=== PATIENT | female | born 1995 | race African-American/Black ===

== ENCOUNTER → 2016-10-11 | Outpatient (CLI) | payer BC ==
[~2016-10-11] MED LIST: BACT400T PO; CIPR500T2 PO; FERR1TAB36 PO; FERR325T PO; LACT PO; NORC5TAB PO; [UNRECOGNIZED DRUG - CODE] PO
[2016-10-11 12:30] LABS: HEMATOCRIT 28.4 % (35.0-46.0); MEAN CORPUSCULAR HGB CONC 31.8 % (32.0-36.0); PLATELET COUNT 627 TH/MM3 (150-450); RED CELL DISTRIBUTION WIDTH 16.9 % (11.6-17.2); WHITE BLOOD COUNT 10.4 TH/MM3 (4.0-11.0)
[2016-10-11 12:32] LABS: REVIEW FLAG FINAL
[2016-10-11 13:33] LABS: ANION GAP 8 MEQ/L (5-15); BICARBONATE 27.7 MEQ/L (21.0-32.0); CHLORIDE 102 MEQ/L (98-107); POTASSIUM 3.9 MEQ/L (3.5-5.1); SODIUM (NA) 138 MEQ/L (136-145)
[2016-10-11 13:39] LABS: BHCG SCREEN QUALITATIVE LESS THAN 1 MIU/ML (0-5)
--- NOTE | 2016-10-12 13:34 | EKG ---
Date Performed: 10/11/2016 Time Performed: 12:55:59 PTAGE: 21 years EKG: Sinus rhythm WITH SINUS ARRHYTHMIA NONSPECIFIC T-WAVE ABNORMALITY BORDERLINE ECG NO PREVIOUS TRACING DOCTOR: Kelsi Berntsein Interpretating Date/Time 10/12/2016 13:30:15
--- NOTE | 2016-10-12 17:48 | MH ---
cc: GAIL MCCLAIN DATE OF ADMISSION 10/11/2016 DATE OF 1995 CHIEF COMPLAINT Bilateral extensive hidradenitis HISTORY OF PRESENT ILLNESS This is a 21-year-old black female who has had recurrent active draining hidradenitis both axilla and also to some extent both side groins. Currently she is having significant problems under the axilla. She was seen in my office approximately two weeks ago and was started on oral Septra antibiotic. She does have a history of MRSA cultures positive in the past. She is not septic or having any fever, chills or systemic issue. She does have chronic anemia of unknown origin. Her mother and also some female relatives are also anemic, but she says that she is not sickle-cell positive or a carrier. Her other medical history is otherwise negative. She wishes to go ahead with the definitive removal of the hidradenitis baring glands. She has had numerous antibiotic treatments and occasional small surgical drainage but no definitive removal. The patient underwent detailed explanation of the surgery required, the removal of the glands including surrounding normal soft tissue down to the underlying normal fat and removing all the scars in sinus tracts and the resulting defect would be fairly large. Her axillary hidradenitis covers both the upper extremity side and the chest wall and the center and has numerous open areas. The patient is unable to raise her arms more than 90 degrees at this time. The patient was explained the possibility that due to the active purulent drainage and the history of MRSA it may be advisable to leave the area open at least initially and allow it to granulate in and clear the infection. It can be either skin grafted or a rotation flap closure may be attempted. However, the size of the defect might be too large for a rotation defect from the clinical examination. The patient is willing to leave the area open if need be. The other possibility of forming keloid from a skin graft donor site and also at any surgical site in the body were discussed and she is well aware of that possibility as well. She was told that due to her anemia the postoperative period may be somewhat more prolonged and she may feel more tired compared to someone with a normal hemoglobin. Her current hemoglobin level in the range of 9 grams. The patient should be able to undergo the surgery without much blood loss. However, she understands the possibility that there may be postoperative bleeding, infection, there may be need for intervening in case of acute postoperative hemorrhage and that the blood transfusion may be required. The patient is willing to go ahead with the surgery. PAST MEDICAL HISTORY Negative for any diabetes or any other medical problems. PAST SURGICAL HISTORY No major surgeries. The only surgery has been . MEDICATIONS No current medications other than the prescribed antibiotics. The patient does state iron pills off and on, and oral contraceptives. ALLERGIES She is not allergic to any medication. SOCIAL HISTORY Nonsmoker. No alcohol or drug abuse. No HIV or hepatitis risk factors. PHYSICAL EXAMINATION GENERAL: A 29-year-old black female with a stable vital signs. The patient is alert, cooperative, fully oriented, emotionally stable. Vital signs: She is five feet six inches tall, weight 175 pounds. HEENT: Clear sclerae. Intact pupils. Trachea in midline. No thyromegaly noted. Neck movements are normal. EXTREMITIES: The upper and lower extremities are also grossly normal CHEST: Good expansion with normal breathing, normal breath sounds. HEART: Normal heart sounds. ABDOMEN: Slightly protuberant but otherwise normal. BREASTS: The local examination of the right axillae show extensive hidradenitis with purulent discharge. Under the arm in the axillae and on the chest wall side are involved, also the anterior and posterior axillary folds are also getting involved. The groin areas are more quiet at this time, although there are multiple areas of hidradenitis present. LABORATORY DATA The patient's laboratory tests have shown hemoglobin in the range of nine. IMPRESSION Bilateral extensive hidradenitis PLAN Excise all the area and possibly leave it open and consider a delayed skin graft or a secondary closure at the time. signed, not fully reviewed MD HARVEY Stewart/ /5:17 PM /5:30 PM SAMIR
== END ==
LOC: CPRE 11:55
PROVIDERS: ATTEND Plastic Surgery
DX: L73.2 Hidradenitis suppurativa (principal); R94.31 Abnormal electrocardiogram [ECG] [EKG]
CPT/HCPCS: 36415; 80051; 84703; 85027; 93005

== ENCOUNTER 2016-10-13 06:17 | Observation (INO) | payer BC ==
[~2016-10-13] VITALS: Ht 167.6 cm; Wt 75.0 kg
[~2016-10-13 06:17] MED LIST changes: -[UNRECOGNIZED DRUG - CODE] PO
[2016-10-13] MEDS ORDERED: [UNRECOGNIZED DRUG - CODE] PO ×2 (07:10)
[2016-10-13 07:13] VITALS: BP 116/76; PULSE 106; RESP 20; TEMP 99; O2SAT 100
[2016-10-13] MEDS ORDERED: LIDOCAINE 1%/EPINEPHrine 1:100,000 SOLN 30 ML VIAL ONE (07:19)
[2016-10-13] MEDS ORDERED: ceFAZolin INJ 1,000 MG VIAL ONE (07:20)
[2016-10-13] MEDS ORDERED: BUPIVACAINE/EPINEPHRINE 0.25% PF 30 ML VIAL ONE (07:20)
[2016-10-13] MEDS ORDERED: MINERAL OIL 10 ML VIAL ONE (07:20)
[2016-10-13] MEDS ORDERED: SODIUM CHLORIDE 0.9% INJ 100 ML ONE (07:21)
[2016-10-13] MEDS ORDERED: LACTATED RINGER'S 1000 ML INJ 1,000 ML ONE (07:23)
[2016-10-13] MEDS ORDERED: SODIUM CHLORIDE FLUSH PRN IVF (07:30)
[2016-10-13] MEDS ORDERED: ceFAZolin 1,000 MG/NS 100 ML IV SCH ×2 (07:30)
[2016-10-13] MEDS ORDERED: EPINEPHrine HCL (1:1000) 1 MG/ML VIAL ONE (07:31)
[2016-10-13] MEDS ORDERED: LIDOCAINE 0.5%/EPINEPHrine 1:200,000 SOLN 50 ML VIAL ONE (07:31)
[2016-10-13] MEDS ORDERED: ACETAMINOPHEN 1000 MG/100 ML VIAL IV ONE (07:38)
[2016-10-13] MEDS ORDERED: BACITRACIN TOP OINT 15 GM TUBE ONE (07:42)
[2016-10-13] MEDS ORDERED: INSULIN HUMAN REGULAR 1,000 UNITS/10 ML VIAL SQ PRN (07:45)
[2016-10-13] MEDS ORDERED: SODIUM CHLORID 0.9% 500 ML IV SCH (07:45)
[2016-10-13] MEDS: LACTATED RINGER'S 1000 ML IV SCH (07:45)
[2016-10-13] MEDS ORDERED: METOPROLOL TARTRATE 25 MG TAB PO PRN (07:45)
[2016-10-13] MEDS ORDERED: DO NOT ADM ANY ANTICOAGULANT DRUGS XX PRN (09:45)
[2016-10-13] MEDS ORDERED: *MEPERIDINE 25 MG INJ VIAL PERIprocedural Use ONLY ONE (09:51)
[2016-10-13] MEDS ORDERED: *PROMETHAZINE 25 MG/ML VIAL PERIprocedural use ONLY ONE (09:54)
[2016-10-13] MEDS ORDERED: fentaNYL CITRATE 250 MCG/5 ML AMP ONE ×2 (09:58)
[2016-10-13] MEDS ORDERED: MIDAZOLAM HCL 2 MG/2 ML VIAL ONE (09:58)
[2016-10-13] MEDS: HYDROmorphone HCL PF 1 MG/ML VIAL IV PRN ×4 (10:19→20:12)
[2016-10-13] MEDS ORDERED: ONDANSETRON HCL 4 MG/2 ML VIAL IV PUSH ONE (12:00)
[2016-10-13] MEDS ORDERED: PROPOFOL 200 MG/20 ML AMP IV ONE (12:00)
[2016-10-13 20:00] VITALS: BP 102/56; PULSE 75; RESP 18; TEMP 97.6; O2SAT 98
[2016-10-13] MEDS: SODIUM CHLORIDE FLUSH BID IVF SCH (21:00)
[2016-10-13] MEDS: ACETAMINOPHEN/HYDROcodone 325 MG/10 MG TAB PO PRN (22:11)
[2016-10-13 23:42] VITALS: BP 103/56; PULSE 93; RESP 18; TEMP 98.6; O2SAT 98
[2016-10-14 01:16] VITALS: O2SAT 94
[2016-10-14 04:00] VITALS: BP 110/54; PULSE 66; RESP 18; TEMP 98.6; O2SAT 98
[2016-10-14] MEDS: ACETAMINOPHEN/HYDROcodone 325 MG/10 MG TAB PO PRN ×2 (04:17→08:27)
[2016-10-14] MEDS: LACTATED RINGER'S 1000 ML IV SCH (07:39)
[2016-10-14] MEDS: SODIUM CHLORIDE FLUSH BID IVF SCH (07:46)
[2016-10-14 08:00] VITALS: BP 122/99; PULSE 65; RESP 16; TEMP 97.3; O2SAT 99
--- NOTE | 2016-10-14 08:16 | PD.PLAS.PN ---
Subjective Remarks Patient doing very well. No active bleeding at dressings Afebrile Pain minimal Feels normal OK to shower and change dressing Her mother is a wound care nurse - she will help to dress it daily FU 1 week. Vital Signs Date Time Temp Pulse Resp B/P Pulse Ox O2 Delivery O2 Flow Rate FiO2 10/14/16 04:00 98.6 66 18 110/54 98 10/14/16 01:16 94 10/13/16 23:42 98.6 93 18 103/56 98 10/13/16 20:00 97.6 75 18 102/56 98 10/13/16 16:48 18 10/13/16 15:45 97.6 68 16 114/68 97 Room Air 10/13/16 14:00 69 16 113/69 96 Room Air 10/13/16 13:00 72 16 115/65 95 Room Air 10/13/16 12:00 76 16 119/68 98 Nasal Cannula 2 10/13/16 11:42 16 10/13/16 11:00 97.8 75 15 124/71 97 Nasal Cannula 2 10/13/16 10:49 15 10/13/16 10:45 77 15 123/75 97 Nasal Cannula 2 10/13/16 10:30 79 15 127/77 97 Nasal Cannula 2 10/13/16 10:15 88 15 121/81 96 Nasal Cannula 2 10/13/16 10:00 94 15 135/83 95 Nasal Cannula 2 10/13/16 09:48 98.4 102 16 128/80 95 Nasal Cannula 2 I/O 10/13/16 10/13/16 10/13/16 10/14/16 10/14/16 10/14/16 07:00 15:00 23:00 07:00 15:00 23:00 Intake Total 1140 ml 680 ml 240 ml Output Total 395 ml 350 ml 250 ml Balance 745 ml 330 ml -10 ml Intake Oral 240 ml 480 ml 240 ml IV Total 200 ml 0 ml Other 900 ml Output Urine Total 375 ml 350 ml 250 ml Estimated Blood Loss 20 ml # Bowel Movements 0 0 Date/Time Procedure Status Source Growth 10/13/16 08:18 Gram Stain - Final Resulted Wound Other 10/13/16 08:18 Wound Culture Resulted Wound Other Pending 10/13/16 08:18 Fungal Smear - Final Resulted Wound Other NO FUNGAL ELEMENTS SEEN. 10/13/16 08:18 Fungal Culture Resulted Wound Other Pending 10/13/16 08:18 Acid Fast Stain Received Wound Other Pending 10/13/16 08:18 Mycobacterial Culture Received Wound Other Pending Wesley Mcbride MD Oct 14, 2016 08:16
[2016-10-14 09:27] VITALS: RESP 18
--- NOTE | 2016-10-16 07:49 | MP ---
cc: GAIL MCBRIDE M.D. DATE OF SURGERY: 10/13/2016 PREOPERATIVE DIAGNOSIS Bilateral extensive hidradenitis of axilla. POSTOPERATIVE DIAGNOSIS Bilateral extensive hidradenitis of axilla. OPERATION Bilateral wide excision of axillary hidradenitis; no closing of the wounds. SURGEON Dr. Mcbride ANESTHESIA General. INDICATIONS This is a 21-year-old black female with a prolonged history of hidradenitis, very actively draining purulent and extensive drain involving large areas on both axilla. She also has small areas of groin hidradenitis. She is chronically anemic with no other known factors, otherwise healthy. The patient underwent explanation of the complete excision of hidradenitis gland-bearing skin and soft tissue and scar with possibility of leaving the wounds open at least temporarily to let them granulate in and do possibly a skin graft or a rotation flap or let them heal secondarily. The patient is willing to go ahead with the surgery, understands the pros, cons and general risks and complications including possibility of bleeding continued, infection, keloid formation, scar contracture and possible future surgeries. The patient is eager to go ahead with the surgery to remove the chronic debilitating hidradenitis that she has. PROCEDURE The patient was brought to the operating room, was given supine position. Anesthesia was started. She was on IV antibiotics. The prep and drape was done. A timeout was called and completed. Starting on the left side the soft tissue surrounding the hidradenitis was tumesced with a mixture of saline and lidocaine with epinephrine, Marcaine and additional epinephrine. Approximately 200-250 cc were used on each side. Going about 5-6 millimeters beyond the obvious drain position the excision was carried out mostly using an electric cutting Bovie current and coagulating Bovie current to go straight from the skin down to the underlying normal fat and taking advantage of the hydrodissection. The entire skin bearing the glands and scar tissue was meticulously excised staying in the normal fat as far as possible. She does have several deep tracts running under the pectoralis major anterior axillary fold. On the left side the tunneling is mainly under the muscle. Care was taken to remove as much tissue as safely possible. The very deep part of the tunnel pocket was cleaned with a curet and with light controlled coagulation of the surface in order to protect the underlying neurovascular bundles. On the right side it was noted that she had much more extensive tunneling. One going anterior to the anterior axillary fold almost towards the position of the large subclavian subclavicular area vessels, and the second one going deep into the axilla close to the neurovascular bundles. One tract was also found going towards the latissimus dorsi posterior axillary fold. All of them were again meticulously cleared. Hemostasis was completed with suture ligature for arterial vessels and the areas were observed for a few minutes after complete excision on both sides. Also a culture sample had been taken from the right side prior to the prep and drape being done. All the areas were packed with Betadine-soaked Aquiles bandage packing and sterile dressing was applied. The patient remained stable through the procedure. Intraoperative blood loss was less than 20 cc. No complications. signed, not fully reviewed MD HARVEY Stewart/TAIWO /10:04 PM /7:34 AM MTDD
== END 2016-10-14 11:22 | disposition home or self-care (01) ==
LOC: CSDC 06:17 → N07A 16:11
PROVIDERS: ADMIT Plastic Surgery; ATTEND Plastic Surgery
DX: L73.2 Hidradenitis suppurativa (principal)
CPT/HCPCS: 00400; 11450; 36415; 80051; 84703; 85027; 87015; 87070; 87102; 87116; 87205; 87206; 88305; 93005; G0378; J0131; J0171; J0690; J1170; J2175; J2250; J2405; J2550; J3010; J7120; 88307

== ENCOUNTER 2017-03-07 16:36 | Emergency (ER) | payer BC ==
[~2017-03-07] VITALS: Ht 167.6 cm; Wt 85.6 kg
[~2017-03-07 16:36] MED LIST changes: -BACT400T PO; -CIPR500T2 PO; -FERR1TAB36 PO; -FERR325T PO; -LACT PO; +[UNRECOGNIZED DRUG - CODE] PO
[2017-03-07 16:39] VITALS: BP 123/80; PULSE 75; RESP 18; TEMP 98.4; O2SAT 100
[2017-03-07 17:07] LABS: BLOOD, URINE NEG (NEG); GLUCOSE,URINE NEG (NEG); KETONE, URINE NEG (NEG); NITRITE,URINE NEG (NEG)
[2017-03-07 17:12] LABS: MUCUS URINE FEW /lpf (OCC); URINE COLOR YELLOW (YELLW/STRAW)
[2017-03-07 17:13] LABS: BACTERIA, URINE FEW /hpf; COMMENT (UR) CULTURE INDICATED; CULTURE IF INDICATED CULTURE INDICATED; SQUAMOUS EPITHELIAL CELL URINE > 8 /hpf (0-5)
[2017-03-07 17:29] LABS: HEMATOCRIT 31.4 % (35.0-46.0)
--- NOTE | 2017-03-07 17:37 | PD ---
HPI Chief Complaint: Computer Analyst Problem/Complaint Time Seen by Provider: 17:10 Travel History International Travel<30 days: No Contact w/Intl Traveler<30days: No Traveled to known affect area: No History of Present Illness HPI Patient is a 21-year-old female presents emergency department for evaluation of vaginal spotting, she states she is unsure if she is . She called her CODING SPECIALIST who told her to come to the emergency department. She states she thinks she had a positive test home this morning. States was having some minimal lower quadrant abdominal cramping and has a history of anemia. Denies any passage of tissue, denies any dysuria. PFSH Past Medical History Anemia: Yes Arthritis: No Cancer: No Cardiovascular Problems: No Cerebrovascular Accident: No Diabetes: No Diminished Hearing: No Endocrine: No Genitourinary: No Headaches: Yes Hepatitis: No Hiatal Hernia: No Immune Disorder: No Musculoskeletal: No Neurologic: No Psychiatric: No Reproductive: No Respiratory: No Integumentary: Yes (puralitive hydranitis ??) Immunizations Current: Yes Migraines: Yes Thyroid Disease: No Tetanus Vaccination: < 5 Years Influenza Vaccination: No ?: Unknown : 1 Para: 0 Miscarriage: 0 : 1 Past Surgical History Abdominal Surgery: Yes (c section) AICD: No Cardiac Surgery: No Section: Yes Ear Surgery: No Endocrine Surgery: No Eye Surgery: No Genitourinary Surgery: No Gynecologic Surgery: Yes (2 abortions) Joint Replacement: No Oral Surgery: No Pacemaker: No Thoracic Surgery: No Other Surgery: Yes (AXILA SX) Social History Alcohol Use: Yes (SOCIAL) Tobacco Use: No Substance Use: No Allergies-Medications (Allergen,Severity, Reaction): Coded Allergies: Vancomycin (Verified Allergy, Mild, ITCHING, 03/07/17) Reported Meds & Prescriptions Reported Meds & Active Scripts Active No Active Prescriptions or Reported Medications Review of Systems Except as stated in HPI: all other systems reviewed are Neg Physical Exam Narrative GENERAL: Well-developed well-nourished no apparent distress, laughs during history.. SKIN: Focused skin assessment warm/dry. HEAD: Atraumatic. Normocephalic. EYES: Pupils equal and round. No scleral icterus. No injection or drainage. ENT: No nasal bleeding or discharge. Mucous membranes pink and moist. NECK: Trachea midline. No JVD. CARDIOVASCULAR: Regular rate and rhythm. No murmur appreciated. RESPIRATORY: No accessory muscle use. Clear to auscultation. Breath sounds equal bilaterally. GASTROINTESTINAL: Abdomen soft, non-tender, nondistended. Hepatic and splenic margins not palpable. MUSCULOSKELETAL: No obvious deformities. No clubbing. No cyanosis. No edema. NEUROLOGICAL: Awake and alert. No obvious cranial nerve deficits. Motor grossly within normal limits. Normal speech. PSYCHIATRIC: Appropriate mood and affect; insight and judgment normal. Data Data Last Documented VS Vital Signs Date Time Temp Pulse Resp B/P Pulse Ox O2 Delivery O2 Flow Rate FiO2 03/07/17 18:36 81 16 97/64 100 Room Air 03/07/17 16:39 98.4 Orders Urinalysis - C+S If Indicated (03/07/17 16:46) Ed Urine Pregnancytest Poc (03/07/17 16:46) Hematocrit (Hct) (03/07/17 17:08) Hemoglobin (Hgb) (03/07/17 17:08) Wet Prep Profile (03/07/17 17:08) Gc And Chlamydia Pcr (03/07/17 17:08) Urine Culture (03/07/17 17:00) Labs Laboratory Tests Test 03/07/17 03/07/17 17:00 17:25 Urine Color YELLOW Urine Turbidity CLOUDY Urine pH 6.0 Urine Specific [place] 1.024 Urine Protein NEG mg/dL Urine Glucose (UA) NEG mg/dL Urine Ketones NEG mg/dL Urine Occult Blood NEG Urine Nitrite NEG Urine Bilirubin NEG Urine Leukocyte Esterase MOD Urine WBC 9-14 /hpf Urine Squamous Epithelial > 8 /hpf Cells Urine Bacteria FEW /hpf Urine Mucus FEW /lpf Microscopic Urinalysis Comment CULTURE INDICATED Hemoglobin 9.9 GM/DL Hematocrit 31.4 % MDM Medical Decision Making Medical Screen Exam Complete: Yes Emergency Medical Condition: Yes Differential Diagnosis , anemia, DUB, ectopic, threatened miscarriage. Narrative Course Patient roomed in the ER, appears well and in NAD. Endorses a history of edema and on extensive ROS patient endorses some mild weakness without dizziness nor feeling faint. Hbg is 9.7 which is improved over her last but her baseline is wandering, i think this is better than her overall baseline. test is negative. Recommended that she have pelvic exam and initially agreeable she would like to follow up with her CODING SPECIALIST. She is hemodynamically stable with benign abdomen, i think this is a reasonable course of action. Recommended she follow up this week. Discussed return to ED criteria. Discussed continued iron supplementation. Diagnosis Primary Impression: Anemia Qualified Code: D64.9 - Anemia, unspecified type Additional Impression: Vaginal bleeding Additional Instructions: Follow-up with your CODING SPECIALIST by phone tomorrow. Scripts No Active Prescriptions or Reported Meds Disposition: 01 DISCHARGE HOME Condition: Stable Socrates Jamison MD Mar 07, 2017 17:37
[2017-03-07 18:36] VITALS: BP 97/64; PULSE 81; RESP 16; O2SAT 100
[2017-03-08 16:30] LABS: CHLAMYDIA PCR NOT DETECTED (NOT DETECT); NEISSERIA PCR NOT DETECTED (NOT DETECT)
== END 2017-03-07 18:45 | disposition home or self-care (01) ==
LOC: PHED 16:36
DX: D64.9 Anemia, unspecified (principal); N93.9 Abnormal uterine and vaginal bleeding, unspecified
CPT/HCPCS: 81001; 84703; 85014; 85018; 87086; 87491; 87591; 99283

== ENCOUNTER 2017-03-23 17:08 | Emergency (ER) | payer BC ==
[~2017-03-23] VITALS: Ht 167.6 cm; Wt 86.0 kg
[2017-03-23 17:13] VITALS: BP 120/80; PULSE 98; RESP 16; TEMP 98.7; O2SAT 100
[2017-03-23 20:09] LABS: BLOOD, URINE NEG (NEG); GLUCOSE,URINE NEG (NEG); KETONE, URINE NEG (NEG); NITRITE,URINE NEG (NEG)
[2017-03-23 20:19] LABS: AUTOMATED NEUTROPHIL # 5.1 TH/MM3 (1.8-7.7); BASOPHIL # 0.4 TH/MM3 (0-0.2); BASOPHIL % 4.3 % (0.0-2.0); EOSINOPHIL # 0.2 TH/MM3 (0-0.4); EOSINOPHIL % 2.2 % (0.0-4.0); HEMATOCRIT 31.4 % (35.0-46.0); LYMPH % 30.9 % (9.0-44.0); LYMPHOCYTE # 2.9 TH/MM3 (1.0-4.8); MEAN CELL VOLUME 70.8 FL (80.0-100.0); MEAN CORPUSCULAR HEMOGLOBIN 22.2 PG (27.0-34.0); MEAN CORPUSCULAR HGB CONC 31.3 % (32.0-36.0); MONO % 9.8 % (0.0-8.0); NEUT % 52.8 % (16.0-70.0); PLATELET COUNT 399 TH/MM3 (150-450); RED BLOOD COUNT 4.44 MIL/MM3 (4.00-5.30); RED CELL DISTRIBUTION WIDTH 19.8 % (11.6-17.2); WHITE BLOOD COUNT 9.5 TH/MM3 (4.0-11.0)
[2017-03-23 20:21] LABS: URINE COLOR YELLOW (YELLW/STRAW)
[2017-03-23 20:22] LABS: MUCUS URINE MANY /lpf (OCC); SQUAMOUS EPITHELIAL CELL URINE 0-5 /hpf (0-5)
[2017-03-23 20:23] LABS: COMMENT (UR) CULT NOT INDICATED; CULTURE IF INDICATED CULT NOT INDICATED
[2017-03-23 20:28] LABS: HEMO FLAGS AUTO DIFF
[2017-03-23 20:40] LABS: BETA HCG QUANT 23101 MIU/ML (0-5)
[2017-03-23 20:44] LABS: OVALOCYTES 1+ (NORMAL)
[2017-03-23 20:45] LABS: SCAN/DIFF AUTO DIFF CONFIRMED
--- NOTE | 2017-03-23 20:58 | PD ---
HPI Chief Complaint: Abdominal Pain Time Seen by Provider: 19:25 Travel History International Travel<30 days: No Contact w/Intl Traveler<30days: No Traveled to known affect area: No History of Present Illness HPI This 21-year-old female is complaining of lower abdominal pain and vaginal bleeding. He was here on March 07 similar symptoms. At that time she had a home test which was positive. The test here was negative and was released and has been okay. Tonight she had the pain again there was some lower abdominal pain she had some vaginal spotting. She hasn't AGAIN done a home test is positive. She is 3 para 1. She has a history of hidradenitis PFS Past Medical History Hx Anticoagulant Therapy: No Anemia: Yes (IRON DEFICIENCY) Arthritis: No Cancer: No Cardiovascular Problems: No Cerebrovascular Accident: No Diabetes: No Diminished Hearing: No Endocrine: No Genitourinary: No Headaches: Yes Hepatitis: No Hiatal Hernia: No Immune Disorder: No Musculoskeletal: No Neurologic: No Psychiatric: No Reproductive: No Respiratory: Yes (BRONCHITIS) Integumentary: Yes (puralitive hydranitis ??) Immunizations Current: Yes Migraines: Yes Thyroid Disease: No Tetanus Vaccination: < 5 Years Influenza Vaccination: No ?: Unknown LMP: 02/13/17 : 3 Para: 1 Miscarriage: 0 : 2 Ovarian Cysts: Yes Past Surgical History Abdominal Surgery: Yes (c section) AICD: No Cardiac Surgery: No Section: Yes (2014) Ear Surgery: No Endocrine Surgery: No Eye Surgery: No Genitourinary Surgery: No Gynecologic Surgery: Yes Joint Replacement: No Oral Surgery: Yes (TOOTH EXTRACTION) Pacemaker: No Thoracic Surgery: No Other Surgery: Yes (BILATERAL AXILLA R/T INFECTION) Social History Alcohol Use: Yes (SOCIAL) Tobacco Use: No Substance Use: No Allergies-Medications (Allergen,Severity, Reaction): Coded Allergies: Vancomycin (Verified Allergy, Mild, ITCHING, 03/23/17) Reported Meds & Prescriptions Reported Meds & Active Scripts Active No Active Prescriptions or Reported Medications Review of Systems General / Constitutional: No: Fever, Chills Eyes: No: Diploplia, Blurred Vision HENT: No: Headaches Cardiovascular: No: Palpitations Respiratory: No: Cough Gastrointestinal: Positive: Nausea Genitourinary: Positive: Pelvic Pain, Vaginal Bleeding Musculoskeletal: No: Myalgias, Arthralgias Skin: No Rash Neurologic: No: Weakness, Dizziness Hematologic/Lymphatic: No: Easy Bruising Physical Exam Narrative GENERAL: Well-developed female SKIN: Focused skin assessment warm/dry. HEAD: Atraumatic. Normocephalic. EYES: Pupils equal and round. No scleral icterus. No injection or drainage. ENT: No nasal bleeding or discharge. Mucous membranes pink and moist. NECK: Trachea midline. No JVD. CARDIOVASCULAR: Regular rate and rhythm. No murmur appreciated. RESPIRATORY: No accessory muscle use. Clear to auscultation. Breath sounds equal bilaterally. GASTROINTESTINAL: Abdomen soft, non-tender, nondistended. Hepatic and splenic margins not palpable. Rectal exam was done by the PA. Please see her dictation MUSCULOSKELETAL: No obvious deformities. No clubbing. No cyanosis. No edema. NEUROLOGICAL: Awake and alert. No obvious cranial nerve deficits. Motor grossly within normal limits. Normal speech. PSYCHIATRIC: Appropriate mood and affect; insight and judgment normal. Data Data Last Documented VS Vital Signs Date Time Temp Pulse Resp B/P Pulse Ox O2 Delivery O2 Flow Rate FiO2 03/23/17 23:19 85 16 99/60 100 Room Air 03/23/17 17:13 98.7 Orders Beta Hcg (Quant/Titer) (03/23/17 19:30) Complete Blood Count With Diff (03/23/17 19:30) Gc And Chlamydia Pcr (03/23/17 19:30) Urinalysis - C+S If Indicated (03/23/17 19:30) Us Pelvis (Ques Pr/Ect)W Trans (03/23/17 20:52) Wet Prep Profile (03/23/17 21:06) Labs Laboratory Tests Test 03/23/17 03/23/17 19:45 21:05 White Blood Count 9.5 TH/MM3 Red Blood Count 4.44 MIL/MM3 Hemoglobin 9.9 GM/DL Hematocrit 31.4 % Mean Corpuscular Volume 70.8 FL Mean Corpuscular Hemoglobin 22.2 PG Mean Corpuscular Hemoglobin 31.3 % Concent Red Cell Distribution Width 19.8 % Platelet Count 399 TH/MM3 Mean Platelet Volume 7.8 FL Neutrophils (%) (Auto) 52.8 % Lymphocytes (%) (Auto) 30.9 % Monocytes (%) (Auto) 9.8 % Eosinophils (%) (Auto) 2.2 % Basophils (%) (Auto) 4.3 % Neutrophils # (Auto) 5.1 TH/MM3 Lymphocytes # (Auto) 2.9 TH/MM3 Monocytes # (Auto) 0.9 TH/MM3 Eosinophils # (Auto) 0.2 TH/MM3 Basophils # (Auto) 0.4 TH/MM3 CBC Comment AUTO DIFF Differential Comment AUTO DIFF CONFIRMED Ovalocytes 1+ Urine Color YELLOW Urine Turbidity CLEAR Urine pH 6.0 Urine Specific [place] 1.030 Urine Protein TRACE mg/dL Urine Glucose (UA) NEG mg/dL Urine Ketones NEG mg/dL Urine Occult Blood NEG Urine Nitrite NEG Urine Bilirubin NEG Urine Leukocyte Esterase NEG Urine RBC /hpf Urine WBC 3-5 /hpf Urine Squamous Epithelial 0-5 /hpf Cells Urine Mucus MANY /lpf Microscopic Urinalysis Comment CULT NOT INDICATED Human Chorionic Gonadotropin, 44632 MIU/ML Quant Clue Cells (Wet Prep) PRESENT Vaginal Trichomonas (Wet Prep) NONE SEEN Vaginal Yeast (Wet Prep) NONE SEEN MDM Medical Decision Making Medical Screen Exam Complete: Yes Emergency Medical Condition: Yes Medical Record Reviewed: Yes Differential Diagnosis Differential includes menstrual bleeding, ectopic , threatened AB Narrative Course Beta titer is over 20,000. An ultrasound was obtained which shows an intrauterine gestational sac of 5 weeks 6 days. Yolk sac and pole is seen but no heart beat is seen and may be too small for detection heart activity. Diagnosis Primary Impression: Intrauterine Additional Impressions: Threatened miscarriage in early Bacterial vaginosis Scripts Metronidazole (Flagyl)500 Mg [id number] Mg PO TID 5 Days Ref 0 Prov:Darian Avelar MD 03/23/17 Disposition: 01 DISCHARGE HOME Condition: Stable Darian Avelar MD Mar 23, 2017 20:58
--- NOTE | 2017-03-23 21:12 | PD ---
Physical Exam Time Seen by Provider: 20:50 Narrative I performed the pelvic exam on this patient. Please see Dr. Avelar's dictation for the complete history and physical exam. GENITOURINARY: Normal external genitalia without lesions or erythema. There are several healed areas of hidradenitis suppurativa. Vaginal vault without blood or drainage. Cervical os was closed with foul-smelling, white drainage. Data Data Last Documented VS Vital Signs Date Time Temp Pulse Resp B/P Pulse Ox O2 Delivery O2 Flow Rate FiO2 03/23/17 17:13 98.7 98 16 120/80 100 Orders Beta Hcg (Quant/Titer) (03/23/17 19:30) Complete Blood Count With Diff (03/23/17 19:30) Gc And Chlamydia Pcr (03/23/17 19:30) Urinalysis - C+S If Indicated (03/23/17 19:30) Us Pelvis (Ques Pr/Ect)W Trans (03/23/17 20:52) Wet Prep Profile (03/23/17 21:06) Labs Laboratory Tests Test 03/23/17 19:45 White Blood Count 9.5 TH/MM3 Red Blood Count 4.44 MIL/MM3 Hemoglobin 9.9 GM/DL Hematocrit 31.4 % Mean Corpuscular Volume 70.8 FL Mean Corpuscular Hemoglobin 22.2 PG Mean Corpuscular Hemoglobin 31.3 % Concent Red Cell Distribution Width 19.8 % Platelet Count 399 TH/MM3 Mean Platelet Volume 7.8 FL Neutrophils (%) (Auto) 52.8 % Lymphocytes (%) (Auto) 30.9 % Monocytes (%) (Auto) 9.8 % Eosinophils (%) (Auto) 2.2 % Basophils (%) (Auto) 4.3 % Neutrophils # (Auto) 5.1 TH/MM3 Lymphocytes # (Auto) 2.9 TH/MM3 Monocytes # (Auto) 0.9 TH/MM3 Eosinophils # (Auto) 0.2 TH/MM3 Basophils # (Auto) 0.4 TH/MM3 CBC Comment AUTO DIFF Differential Comment AUTO DIFF CONFIRMED Ovalocytes 1+ Urine Color YELLOW Urine Turbidity CLEAR Urine pH 6.0 Urine Specific [place] 1.030 Urine Protein TRACE mg/dL Urine Glucose (UA) NEG mg/dL Urine Ketones NEG mg/dL Urine Occult Blood NEG Urine Nitrite NEG Urine Bilirubin NEG Urine Leukocyte Esterase NEG Urine RBC /hpf Urine WBC 3-5 /hpf Urine Squamous Epithelial 0-5 /hpf Cells Urine Mucus MANY /lpf Microscopic Urinalysis Comment CULT NOT INDICATED Human Chorionic Gonadotropin, 52227 MIU/ML Quant MDM Medical Record Reviewed: Yes Supervised Visit with CRUZITO: No Scripts No Active Prescriptions or Reported Meds Natasha Ontiveros Mar 23, 2017 21:12
--- NOTE | 2017-03-23 23:10 | RADRPT ---
EXAM DATE/TIME: 03/23/2017 22:08 [place] COMPARISON: POC ULTRASOUND ED, May 18, 2016, 13:46. INDICATIONS : Pelvic pain with . LAB(S): [facility] MEDICAL HISTORY : . Migraines. Bronchitis. x 2. Anemia. Blood transfusion. Hidradenitis suppurati va. SURGICAL HISTORY : section. Bilateral axilla surgery for infection. ENCOUNTER: Initial ACUITY: 1 day PAIN SCORE: 5/10 LOCATION: Bilateral pelvis MEASUREMENTS: UTERUS: 10.2 x 6.9 x 5.5 cm ENDOMETRIAL STRIPE: 16 mm RIGHT OVARY: 3.7 x 3.0 x 2.1 cm LEFT OVARY: 5.2 x 4.3 x 3.7 cm FREE FLUID: Yes Trace in posterior cul de sac and adjacent to the left ovary. CROWN RUMP LENGTH: 0.26 cm = 5 WKS 6 DAYS FHR: Non visualized. BPM FINDINGS: UTERUS: Elongated gestational sac is seen within the uterus with a mean sac diameter indicating an approximat e gestational age of 5 weeks 6 days. Yolk sac is identified. pole is identified with crown rump length measurement indicating approximate gestational age of 5 weeks 6 days. No heart activity identified. RIGHT OVARY: Ovary contains no mass or significant cystic lesion. LEFT OVARY: 3.7 x 2.1 x 2.9 cm simple cyst in the left ovary. MISCELLANEOUS: Small amount of free fluid. CONCLUSION: 1. Intrauterine gestational sac with yolk sac and pole identified. No heart activity iden tified. pole may be too small for detection of heart activity. Approximate gestational ag e of 5 weeks 6 days. 2. 3 cm simple left ovarian cyst. 3. Trace free fluid in the pelvis. Carlos Rodriguez MD on March 23, 2017 at 23:00 Board Certified Radiologist. This report was verified electronically.
[2017-03-23 23:19] VITALS: BP 99/60; PULSE 85; RESP 16; O2SAT 100
[2017-03-23] MEDS ORDERED: METR-1 PO (23:26)
[2017-03-24 01:30] LABS: CHLAMYDIA PCR NOT DETECTED (NOT DETECT); NEISSERIA PCR NOT DETECTED (NOT DETECT)
== END 2017-03-23 23:37 | disposition home or self-care (01) ==
LOC: PHED 17:08
DX: O20.0 Threatened abortion (principal); O23.591 Infection of other part of genital tract in pregnancy, first trimester; Z3A.01 Less than 8 weeks gestation of pregnancy
CPT/HCPCS: 76700; 76817; 81001; 84702; 85025; 87210; 87491; 87591; 99284

== ENCOUNTER 2017-03-25 20:12 | Emergency (ER) | payer BC ==
[~2017-03-25] VITALS: Ht 167.6 cm; Wt 86.6 kg
[~2017-03-25 20:12] MED LIST changes: +METR-1 PO; -NORC5TAB PO; -[UNRECOGNIZED DRUG - CODE] PO
[2017-03-25 20:39] VITALS: BP 106/75; PULSE 105; RESP 18; TEMP 98.5; O2SAT 100
[2017-03-25] MEDS ORDERED: ACETAMINOPHEN 500 MG CPLT PO ONE (21:15)
[2017-03-25] MEDS ORDERED: LIDOCAINE HCL 1% PF 30 ML VIAL ONE (21:24)
[2017-03-25] MEDS ORDERED: LIDOCAINE HCL 1% PF 30 ML VIAL INFIL ONE (21:30)
--- NOTE | 2017-03-25 21:51 | PD ---
HPI Chief Complaint: Skin Problem Time Seen by Provider: 21:01 Travel History International Travel<30 days: No Contact w/Intl Traveler<30days: No Traveled to known affect area: No History of Present Illness HPI 21yo F with PMH of hidradenitis presents to the ED with c/o lump in her right leg that started yesterday. Pt was just here on 03/23/17 for lower abdominal pain and had US that showed IUP with gestational sac and yolk sac and pole about 5 weeks 6days. Also had clue cells and being treated with metronidazole. Denies any fever, chest pain, sob, n/v, abdominal pain. PFSH Past Medical History Hx Anticoagulant Therapy: No Anemia: Yes (IRON DEFICIENCY) Arthritis: No Cancer: No Cardiovascular Problems: No Cerebrovascular Accident: No Diabetes: No Diminished Hearing: No Endocrine: No Genitourinary: No Headaches: Yes Hepatitis: No Hiatal Hernia: No Immune Disorder: No Musculoskeletal: No Neurologic: No Psychiatric: No Reproductive: No Respiratory: Yes (BRONCHITIS) Integumentary: Yes (puralitive hydranitis ??) Immunizations Current: Yes Migraines: Yes Thyroid Disease: No Tetanus Vaccination: < 5 Years Influenza Vaccination: No ?: LMP: 06-04=17 : 3 Para: 1 Miscarriage: 0 : 2 Ovarian Cysts: Yes Past Surgical History Abdominal Surgery: Yes (c section) AICD: No Cardiac Surgery: No Section: Yes (2014) Ear Surgery: No Endocrine Surgery: No Eye Surgery: No Genitourinary Surgery: No Gynecologic Surgery: Yes Joint Replacement: No Oral Surgery: Yes (TOOTH EXTRACTION) Pacemaker: No Thoracic Surgery: No Other Surgery: Yes (BILATERAL AXILLA R/T INFECTION) Social History Alcohol Use: Yes (SOCIAL) Tobacco Use: No Substance Use: No Allergies-Medications (Allergen,Severity, Reaction): Coded Allergies: Vancomycin (Verified Allergy, Mild, ITCHING, 03/25/17) Reported Meds & Prescriptions Reported Meds & Active Scripts Active Flagyl (Metronidazole) 500 Mg Tab 500 Mg PO TID 5 Days Review of Systems Except as stated in HPI: all other systems reviewed are Neg Physical Exam Narrative GENERAL: 21yo F not in distress. SKIN: +3cm by 2cm right perineal abscess. +Fluctuance. HEAD: Atraumatic. Normocephalic. CARDIOVASCULAR: Regular rate and rhythm. No murmur appreciated. RESPIRATORY: No accessory muscle use. Clear to auscultation. Breath sounds equal bilaterally. GASTROINTESTINAL: Abdomen soft, non-tender, nondistended. No rebound tenderness or guarding. MUSCULOSKELETAL: No obvious deformities. No clubbing. No cyanosis. No edema. NEUROLOGICAL: Awake and alert. No obvious cranial nerve deficits. Motor grossly within normal limits. Normal speech. PSYCHIATRIC: Appropriate mood and affect; insight and judgment normal. Data Data Last Documented VS Vital Signs Date Time Temp Pulse Resp B/P Pulse Ox O2 Delivery O2 Flow Rate FiO2 03/25/17 20:39 98.5 105 18 106/75 100 Orders Acetaminophen (Tylenol) (03/25/17 21:15) Lidocaine Pf 1% Inj (Xylocaine-Mpf 1% In (03/25/17 21:24) Lidocaine Pf 1% Inj (Xylocaine-Mpf 1% In (03/25/17 21:30) MDM Medical Decision Making Medical Screen Exam Complete: Yes Emergency Medical Condition: Yes Differential Diagnosis Abscess Narrative Course 21yo F with right perineal abscess. I&D performed by my PA. Pt instructed to follow up with PMD or ED in 48 hours for packing removal and wound check. Return precautions given. Diagnosis Primary Impression: Abscess Patient Instructions: General Instructions Departure Forms: Tests/Procedures Additional Instructions: Please return to the emergency department in 48 hours for packing removal and wound check. Return to the ED if symptoms worsen. Med/Other Pt SpecificInfo: No Change to Meds Disposition: 01 DISCHARGE HOME Condition: Stable Tabby Marmolejo DO Mar 25, 2017 21:51
--- NOTE | 2017-03-25 22:01 | PD ---
Physical Exam Date Seen by Provider: Mar 25, 2017 Time Seen by Provider: 21:59 Narrative I was asked to perform I&D by Dr. Marmolejo Please refer to history of present illness for full details. Data Data Last Documented VS Vital Signs Date Time Temp Pulse Resp B/P Pulse Ox O2 Delivery O2 Flow Rate FiO2 03/25/17 20:39 98.5 105 18 106/75 100 Orders Acetaminophen (Tylenol) (03/25/17 21:15) Lidocaine Pf 1% Inj (Xylocaine-Mpf 1% In (03/25/17 21:24) Lidocaine Pf 1% Inj (Xylocaine-Mpf 1% In (03/25/17 21:30) MDM Medical Record Reviewed: Yes Supervised Visit with CRUZIOT: No Differential Diagnosis Right inner thigh abscess Narrative Course Right inner thigh abscess. Patient gave verbal consent to incision and drainage. Patient tolerated without incident. Recommend recheck in 2 days for packing removal. Procedures Procedure Narrative After the risks and benefits were discussed the following procedure was performed: INCISION AND DRAINAGE OF ABSCESS: The area was prepped and was sterilely draped. A subcutaneous wheal of 1 % Xylocaine with a total number 5 mL was used to anesthetize the area along with ethyl chloride. The area was properly anesthetized. A number 11 scalpel was used to make a 1 cm-cm incision across the area of the abscess. Cultures were obtained. The abscess was drained an irrigated with normal saline. Quarter inch iodoform packing was placed in the wound. Sterile dressing applied. Patient advised to have packing removed in two days. Additional Instruction: Rest, hydrate. Do not change the dressing unless it becomes wet or soiled until wound recheck in 48 hours. You may bathe normally. Do not submerge the wound. Take the antibiotics as they are prescribed, even if your symptoms resolve during the course of treatment. Utilize [id number] pain medications, as described on the label, as needed. Return to the ED in 48 hours for packing removal and wound recheck. Follow-up with your primary care provider in next week. Return to the ED for any urgent or emergent medical condition. Condition: Stable Nallely Garcia Mar 25, 2017 22:01
== END 2017-03-25 22:47 | disposition home or self-care (01) ==
LOC: PHEFT 20:12
DX: L02.215 Cutaneous abscess of perineum (principal)
CPT/HCPCS: 56405

== ENCOUNTER 2017-03-27 18:25 | Emergency (ER) | payer BC ==
[~2017-03-27] VITALS: Ht 167.6 cm; Wt 85.7 kg
[2017-03-27 18:28] VITALS: BP 107/76; PULSE 90; RESP 18; TEMP 99; O2SAT 99
--- NOTE | 2017-03-27 19:01 | PD ---
HPI Chief Complaint: Wound/Suture/Staple Re-Check Time Seen by Provider: 18:57 Travel History International Travel<30 days: No Contact w/Intl Traveler<30days: No Traveled to known affect area: No History of Present Illness HPI The patient is a 21-year-old [place] female who presents emergency department for packing removal of a right thigh abscess that is near the groin. The patient states she had an incision and drainage that occurred 2 days ago in the emergency department, had packing applied, and was advised to return to days later for packing removal. The patient does have a history of hidradenitis supportive and is undergone surgery by her plastic surgeon in the axilla, is awaiting for those to heal and then will undergo surgery for the inguinal region. The patient is currently on Flagyl. She denies any fever, chills, or sweats and notes her symptoms have improved. PFSH Past Medical History Hx Anticoagulant Therapy: No Anemia: Yes (IRON DEFICIENCY) Arthritis: No Cancer: No Cardiovascular Problems: No Cerebrovascular Accident: No Diabetes: No Diminished Hearing: No Endocrine: No Genitourinary: No Headaches: Yes Hepatitis: No Hiatal Hernia: No Immune Disorder: No Musculoskeletal: No Neurologic: No Psychiatric: No Reproductive: No Respiratory: Yes (BRONCHITIS) Integumentary: Yes (puralitive hydranitis ??) Immunizations Current: Yes Migraines: Yes Thyroid Disease: No ?: Not LMP: 6 WEEKS PREG : 3 Para: 1 Miscarriage: 0 : 2 Ovarian Cysts: Yes Past Surgical History Abdominal Surgery: Yes (c section) AICD: No Cardiac Surgery: No Section: Yes (2014) Ear Surgery: No Endocrine Surgery: No Eye Surgery: No Genitourinary Surgery: No Gynecologic Surgery: Yes Joint Replacement: No Oral Surgery: Yes (TOOTH EXTRACTION) Pacemaker: No Thoracic Surgery: No Other Surgery: Yes (BILATERAL AXILLA R/T INFECTION) Social History Alcohol Use: Yes (SOCIAL) Tobacco Use: No Substance Use: No Allergies-Medications (Allergen,Severity, Reaction): Coded Allergies: Vancomycin (Verified Allergy, Mild, ITCHING, 03/27/17) Reported Meds & Prescriptions Reported Meds & Active Scripts Active Flagyl (Metronidazole) 500 Mg Tab 500 Mg PO TID 5 Days Review of Systems Except as stated in HPI: all other systems reviewed are Neg General / Constitutional: No: Fever Skin: Positive Other (as noted in history of present illness) Physical Exam Narrative GENERAL: Awake, alert, pleasant 21-year-old female who appears her stated age and is in no acute respiratory distress. The patient was moved to [place]. Right before meals for evaluation of inguinal abscess. SKIN: Focused skin assessment warm/dry. Patient has inflammatory changes consistent with hidradenitis inverted in the right groin. Mild drainage from the abscess where the packing was removed. HEAD: Atraumatic. Normocephalic. EYES: No injection or drainage. ENT: No nasal bleeding or discharge. Mucous membranes pink and moist. NECK: Trachea midline. No JVD. MUSCULOSKELETAL: No obvious deformities. No clubbing. No cyanosis. No edema. NEUROLOGICAL: Awake and alert. No obvious cranial nerve deficits. Motor grossly within normal limits. Normal speech. PSYCHIATRIC: Appropriate mood and affect; insight and judgment normal. Data Data Last Documented VS Vital Signs Date Time Temp Pulse Resp B/P Pulse Ox O2 Delivery O2 Flow Rate FiO2 03/27/17 18:28 99.0 90 18 107/76 99 MDM Medical Decision Making Medical Screen Exam Complete: Yes Emergency Medical Condition: Yes Medical Record Reviewed: Yes Differential Diagnosis Differential diagnosis includes wound check, abscess check, hidradenitis suppurativa, cellulitis. Narrative Course The packing was removed, the wound has a small amount of drainage, no obvious other underlying fluctuance. The patient is advised to have sitz baths and/or apply warm compresses and to finish Flagyl as previously directed. She is also advised to follow-up with her plastic surgeon and primary physician. Return if symptoms worsen or progress. Diagnosis Primary Impression: Wound check, abscess Patient Instructions: General Instructions Additional Instructions: Finish medications as previously directed. Follow-up with your primary physician and plastic surgeon. Return if symptoms worsen or progress. Warm compresses and/or sitz baths. Med/Other Pt SpecificInfo: No Change to Meds Disposition: 01 DISCHARGE HOME Condition: Stable Denys Bentley MD Mar 27, 2017 19:01
== END 2017-03-27 19:35 | disposition home or self-care (01) ==
LOC: PHED 18:25
DX: L02.415 Cutaneous abscess of right lower limb (principal); Z48.01 Encounter for change or removal of surgical wound dressing
CPT/HCPCS: 99281

== ENCOUNTER 2017-08-31 17:02 | Emergency (ER) | payer BC, OTHER ==
[2017-08-31 17:04] VITALS: BP 121/72; PULSE 108; RESP 16; TEMP 98.4; O2SAT 98
--- NOTE | 2017-08-31 18:27 | PD ---
HPI Chief Complaint: Musculoskeletal Complaint Time Seen by Provider: 18:15 Travel History International Travel<30 days: No Contact w/Intl Traveler<30days: No Traveled to known affect area: No History of Present Illness HPI 22-year-old, 29 week gravid female presents to the ED complaining of bilateral feet pain with numbness and tingling of the lower extremities. Patient states she has had this pain for a couple of days but has worsened today. States she feels some mild tingling of the shins along with some mild to moderate pain. Patient states she has taken Tylenol with some relief of pain. Patient has not been able follow-up with an casino manager since beginning of July and she is concerned that something serious. Patient denies fever, chills, headache, visual changes, nausea, vomiting. Patient denies recent travel, surgeries, fractures, blood disorders. Patient says she has been trying to follow-up with an casino manager. PFSH Past Medical History Hx Anticoagulant Therapy: No Anemia: Yes (IRON DEFICIENCY) Arthritis: No Cancer: No Cardiovascular Problems: No Cerebrovascular Accident: No Diabetes: No Diminished Hearing: No Endocrine: No Genitourinary: No Headaches: Yes Hepatitis: No Hiatal Hernia: No Immune Disorder: No Musculoskeletal: No Neurologic: No Psychiatric: No Reproductive: No Respiratory: Yes (BRONCHITIS) Integumentary: Yes (puralitive hydranitis ??) Immunizations Current: Yes Migraines: Yes Thyroid Disease: No ?: : 3 Para: 1 Miscarriage: 0 : 2 Ovarian Cysts: Yes Past Surgical History Abdominal Surgery: Yes (c section) AICD: No Cardiac Surgery: No Section: Yes (2014) Ear Surgery: No Endocrine Surgery: No Eye Surgery: No Genitourinary Surgery: No Gynecologic Surgery: Yes Joint Replacement: No Oral Surgery: Yes (TOOTH EXTRACTION) Pacemaker: No Thoracic Surgery: No Other Surgery: Yes (BILATERAL AXILLA R/T INFECTION) Social History Alcohol Use: Yes (SOCIAL) Tobacco Use: No Substance Use: No Allergies-Medications (Allergen,Severity, Reaction): Coded Allergies: vancomycin (Unverified Allergy, Mild, ITCHING, 04/26/17) Reported Meds & Prescriptions Reported Meds & Active Scripts Active Flagyl (Metronidazole) 500 Mg Tab 500 Mg PO TID 5 Days Review of Systems Except as stated in HPI: all other systems reviewed are Neg Physical Exam Narrative GENERAL: Well-developed well-nourished in no apparent distress, ambulatory SKIN: Focused skin assessment warm/dry. HEAD: Atraumatic. Normocephalic. EYES: Pupils equal and round. No scleral icterus. No injection or drainage. NECK: Trachea midline. No JVD. CARDIOVASCULAR: Regular rate and rhythm. No murmur appreciated. RESPIRATORY: No accessory muscle use. Clear to auscultation. Breath sounds equal bilaterally. MUSCULOSKELETAL: No obvious deformities. No clubbing. No cyanosis. No edema. Homans sign negative bilaterally. Pinprick test normal. Neurovascularly intact. No pitting edema. NEUROLOGICAL: Awake and alert. No obvious cranial nerve deficits. Motor grossly within normal limits. Normal speech. PSYCHIATRIC: Appropriate mood and affect; insight and judgment normal. Data Data Last Documented VS Vital Signs Date Time Temp Pulse Resp B/P (MAP) Pulse Ox O2 Delivery O2 Flow Rate FiO2 08/31/17 17:04 98.4 108 16 121/72 (88) 98 Orders Orders Ed Discharge Order (08/31/17 18:33) MDM Medical Decision Making Medical Screen Exam Complete: Yes Emergency Medical Condition: Yes Differential Diagnosis Pedal edema, help syndrome, muscle cramps Narrative Course 22-year-old, 29 week gravid female presents to the ED complaining of bilateral feet pain with numbness and tingling of the lower extremities. Patient states she has had this pain for a couple of days but has worsened today. States she feels some mild tingling of the shins along with some mild to moderate pain. Patient states she has taken Tylenol with some relief of pain. Patient has not been able follow-up with an casino manager since beginning of July and she is concerned that something serious. Patient denies fever, chills, headache, visual changes, nausea, vomiting. Patient denies recent travel, surgeries, fractures, blood disorders. Patient says she has been trying to follow-up with an casino manager. Vital signs stable. Physical exam findings consistent with mild pedal edema without pitting edema. There is no evidence for HELLP syndrome or other concerning feature of . No evidence of DVTs bilateral extremities. Patient is neurovascularly intact. I explained the likely reason for her symptoms and that she should elevate her legs to reduce the swelling and pressure on the nerves. Advised patient to follow up with her primary care physician within 2-3 days. Follow-up with casino manager as soon as possible. Advised that if her symptoms persist or worsen return to the emergency department. Diagnosis Primary Impression: Pedal edema Referrals: Electrical Helper Additional Instructions: Elevate the joint above the heart to reduce swelling. You may use compression with Justus wrap or similar to reduce swelling. If symptoms persist or worsen, return to the emergency department. Follow up with your primary care physician within 2 days. If you develop increased swelling, headache, nausea, vomiting, visual changes, return to the ED. Disposition: 01 DISCHARGE HOME Condition: Stable Trixie Kirk Aug 31, 2017 18:27
== END 2017-08-31 19:24 | disposition home or self-care (01) ==
LOC: NEPK 17:02
DX: O12.03 Gestational edema, third trimester (principal); R20.0 Anesthesia of skin; R20.2 Paresthesia of skin; O99.013 Anemia complicating pregnancy, third trimester; D50.9 Iron deficiency anemia, unspecified; Z88.5 Allergy status to narcotic agent; Z3A.29 29 weeks gestation of pregnancy
CPT/HCPCS: 99281

== ENCOUNTER 2017-09-19 12:48 | Emergency (ER) | payer BC, OTHER ==
[2017-09-19] MEDS ORDERED: CLIN300C5 PO (14:12)
[2017-09-19] MEDS ORDERED: FERR325T18 PO (14:12)
[2017-09-19] MEDS ORDERED: METR-1 PO (14:12)
--- NOTE | 2017-09-19 14:47 | PD ---
HPI Chief Complaint hidradenitis Date Seen: Sep 19, 2017 Travel History International Travel<30 Days: No Contact w/Intl Traveler<30Days: No Known Affected Area: No History of Present Illness HPI Ms. Hernandez is a 22-year-old at 31 4/7 weeks who presents for evaluation of multiple complaints including concern for her hidradenitis, loose bowel movements, and general concern for status. Patient states that she recently moved to [facility] from [place]; she has had some difficulty establishing care while in [facility]. Patient has upcoming appointment with [facility]2016 but she has not been able to obtain care previously in [facility]. Patient reports normal history with exception of some concerns for growth so that she was receiving periodic ultrasound surveillance. Patient also had been receiving treatment for her hidradenitis suppurative until approximately 2016 when her Clindamycin was not refilled. Patient has had hidradenitis chronically; she has had prior surgical treatment for her axillary lesions but has recently had worsened groin lesions. Patient has noticed increased purulent drainage from groin lesions. Patient remembers history of MRSA in her axillary lesions in distant past. Patient does not report any recent fevers; she had one in more distant past which resolved after Tylenol. Patient also reports history of anemia; she was taking iron supplements until she became . Patient has had some chronic shortness of breath when laying flat but no recent worsening. No chest pain or leg swelling. Patient has had watery bowel movements but only every 1 BM every 1-2 days. Patint reports that she previously had Hgb ~5 and required a transfusion after her last ; she has not been recently taking iron. Weeks Gestation: 31 Para: 1 : 2 History Past Medical History Narrative Medical Hidradenitis suppurativa Anemia Obstetric History Obstetric History 1st gestation was CS due to active hidradenitis at 36 weeks (PPROM) Anemia with prior gestation Past Surgical History Narrative Surgical CSx1 2015 Hidradenitis- surgical therapy 2016 Family History Narrative Family History Mother and sister with unspecified proneness to bleeding; have required transfusions Social History Alcohol Use: No Tobacco Use: No Substance Abuse: No Allergies-Medications (Allergen,Severity, Reaction): Coded Allergies: vancomycin (Unverified Allergy, Mild, ITCHING, 04/26/17) Home Meds Active Scripts Ferrous Sulfate (Ferrous Sulfate) 325 Mg (65 Mg Iron) Tablet, 325 MG PO TIDPC for Nutritional Supplement, #90 TAB 0 Refills Prov:Paulo Duarte MD, R3 09/19/17 Metronidazole (Flagyl) 500 Mg Tab, 500 MG PO BID for Infection, #14 TAB 0 Refills Prov:Paulo Duarte MD, R3 09/19/17 Clindamycin (Clindamycin) 300 Mg Cap, 300 MG PO TID for Infection, #42 CAP 0 Refills Prov:Paulo Duarte MD, R3 09/19/17 Metronidazole (Flagyl) 500 Mg Tab, 500 MG PO TID for Infection for 5 Days, TAB 0 Refills Prov:Darian Avelar MD 03/23/17 Review of Systems General / Constitutional: No: Fever, Chills Eyes: No: Blurred Vision, Visual changes HENT: No: Headaches, Vertigo Cardiovascular: No: Chest Pain or Discomfort Respiratory: Short of Breath (when laying down) Gastrointestinal: No: Nausea, Vomiting Genitourinary: Other (groin pustules/pain), No: Frequency Musculoskeletal: No: Limited ROM Skin: No Rash, No Itching Neurologic: No: Weakness, Dizziness Psychiatric: No: Anxiety, Depression Physical Exam T 98.7F MHR 114 BP 118/75 Narrative GENERAL: Well-nourished, well-developed patient. SKIN: Warm and dry. HEAD: Normocephalic and atraumatic. EYES: No scleral icterus. No injection or drainage. ENT: No nasal drainage noted. Mucous membranes pink. Airway patent. NECK: No appreciated lymphadenopathy or thyromegaly CARDIOVASCULAR: Regular rate and rhythm without murmurs RESPIRATORY: Breath sounds equal bilaterally. No accessory muscle use. ABDOMEN/GI: Abdomen soft, non-tender, bowel sounds present, no rebound, no guarding Gravid to ~ 30 weeks GA EXTREMITIES: No cyanosis or edema. NEUROLOGICAL: Awake and alert. Motor and sensory function grossly within normal limits. GENITOURINARY: External Genitalia: Groin/perineal area with multiple areas of active pus expression and surrounding induration suggestive of hidradenitis Uterine Contractions: None on CTG FHT's: Category: 1 Baseline: ~140 Reactive: Y Variability: Mod Decels: None Data Data Vital Signs Reviewed: Yes [facility] Medical Record Reviewed: Yes Narrative Course / MDM 22-year-old at 31 4/7 weeks who presents for evaluation of multiple complaints including concern for her hidradenitis, loose bowel movements, and general concern for status. Assessment: -Hidradenitis on exam with induration and pus expression -EFM- concern for reactivity with tracing -No contractions on CTG -PMH of anemia, unspecified concerns for growth Plan: -Will check US to assess BPP and growth -Reassuring Interval/Updated Plan: Hidradenitis -Will prescribe Clindamycin x2 weeks and Flagyl x1 week -Patient counselled to follow-up with PCP in near future and return to ED if she develops fevers or concerns for worsening -Patient can continue Tylenol for pain control -Patient counselled regarding using Hydrogen Peroxide/water for cleansing lesions -Patient also advised to take Sitz baths as desired Anemia -Due to history of anemia and lack of recent supplementation, patient counselled to take ferrous sulfate 325mg TID -Patient will follow-up with [facility] 10/04 or sooner as needed Diagnosis Diagnosis: Primary Impression: Hidradenitis suppurativa Disposition: 01 DISCHARGE HOME Condition: Stable Scripts Ferrous Sulfate (Ferrous Sulfate) 325 Mg (65 Mg Iron) Tablet 325 MG PO TIDPC for Nutritional Supplement, #90 TAB 0 Refills Prov: Paulo Duarte MD, R3 09/19/17 Metronidazole (Flagyl) 500 Mg Tab 500 MG PO BID for Infection, #14 TAB 0 Refills Prov: Paulo Duarte MD, R3 09/19/17 Clindamycin (Clindamycin) 300 Mg Cap 300 MG PO TID for Infection, #42 CAP 0 Refills Prov: Paulo Duarte MD, R3 09/19/17 Patient Instructions: General Instructions Paulo Duarte MD, R3 Sep 19, 2017 14:47
== END 2017-09-19 15:19 | disposition home or self-care (01) ==
LOC: HOBED 12:48
DX: O26.893 Other specified pregnancy related conditions, third trimester (principal); L73.2 Hidradenitis suppurativa; R19.7 Diarrhea, unspecified; R06.02 Shortness of breath; O99.013 Anemia complicating pregnancy, third trimester; D64.9 Anemia, unspecified; Z3A.31 31 weeks gestation of pregnancy
CPT/HCPCS: 76816; 76819

== ENCOUNTER 2017-09-29 12:05 | Emergency (ER) | payer BC, OTHER ==
[~2017-09-29 12:05] MED LIST changes: +CLIN300C5 PO; +FERR325T18 PO
--- NOTE | 2017-09-29 13:20 | PD ---
HPI Chief Complaint Cramping and bleeding Date Seen: Sep 29, 2017 Time Seen: 13:00 Travel History International Travel<30 Days: No Contact w/Intl Traveler<30Days: No Known Affected Area: No History of Present Illness HPI Patient is a 22 year old at 33 weeks and 0 days who presents to OB triage complaining of cramping pain last night and bleeding this morning. Patient has not yet established care with an flotation tender helper but has appointment with [facility] next week. She describes cramping pain over left lower abdomen and hip, which prevented patient from sleeping well last night. She no longer experiences the pain. When patient used the bathroom this morning, she noticed light red/pink blood on the toilet paper as well as in the toilet bowl. Patient has urinated since and did not notice blood. She denies a change in urinary frequency. She denies increased urgency. She denies burning with urination. Patient has not had sex recently. Patient reports right foot swelling. She also reports occasional dizziness and seeing stars. She denies headache, vision changes, right upper quadrant abdominal pain. Of note, patient was seen in OB triage last week. She was prescribed Clindamycin 300mg PO TID x2 weeks and Flagyl 500mg PO BID x1 week for treatment of hidradenitis. Weeks Gestation: 33 Para: 1 : 2 History Past Medical History Narrative Medical Hidradenitis (armpits, groin area) Anemia Hx of bronchitis Obstetric History Obstetric History - due to active hidradenitis at 36 weeks (PPROM); anemia Past Surgical History Narrative Surgical CSx1 2015 Hidradenitis- surgical therapy 2016 Family History Narrative Family History Mother and sister - unspecified bleeding disorder; have required transfusions. Social History Alcohol Use: No Tobacco Use: No Substance Abuse: No Allergies-Medications (Allergen,Severity, Reaction): Coded Allergies: vancomycin (Unverified Allergy, Mild, ITCHING, 04/26/17) Home Meds Active Scripts Nitrofurantoin Monohydrate Macrocrystals (Macrobid) 100 Mg Cap, 100 MG PO BID for Infection for 7 Days, #14 CAP 0 Refills Prov:Stephany Parks MD R1 09/29/17 Ferrous Sulfate (Ferrous Sulfate) 325 Mg (65 Mg Iron) Tablet, 325 MG PO TIDPC for Nutritional Supplement, #90 TAB 0 Refills Prov:Paulo Duarte MD, R3 09/19/17 Metronidazole (Flagyl) 500 Mg Tab, 500 MG PO BID for Infection, #14 TAB 0 Refills Prov:Paulo Duarte MD, R3 09/19/17 Clindamycin (Clindamycin) 300 Mg Cap, 300 MG PO TID for Infection, #42 CAP 0 Refills Prov:Paulo Duarte MD, R3 09/19/17 Metronidazole (Flagyl) 500 Mg Tab, 500 MG PO TID for Infection for 5 Days, TAB 0 Refills Prov:Darian Avelar MD 03/23/17 Review of Systems Except as stated in HPI: all other systems reviewed are Neg Physical Exam Narrative GENERAL: Well-nourished, well-developed patient. SKIN: Warm and dry. HEAD: Normocephalic and atraumatic. EYES: No scleral icterus. No injection or drainage. ENT: No nasal drainage noted. Mucous membranes pink. Airway patent. NECK: Supple, trachea midline. No JVD. CARDIOVASCULAR: Regular rate and rhythm without murmurs, gallops, or rubs. RESPIRATORY: Breath sounds equal bilaterally. No accessory muscle use. ABDOMEN/GI: Abdomen soft, non-tender, bowel sounds present, no rebound, no guarding Gravid to 33 weeks size GENITOURINARY: External Genitalia: Groin/perineal area with multiple areas of active pus expression and surrounding induration suggestive of hidradenitis Dilatation: Closed Effacement: Thick Station: High Membranes: Intact Uterine Contractions: None FHT's: Category: 1 Baseline: 150 Reactive: Reactive Variability: Moderate Decels: None EXTREMITIES: No cyanosis or edema. BACK: Nontender without obvious deformity. No CVA tenderness. NEUROLOGICAL: Awake and alert. Motor and sensory grossly within normal limits. Five out of 5 muscle strength in all muscle groups. Normal speech. Data Data Vital Signs Reviewed: Yes Orders Orders Urinalysis - C+S If Indicated (09/29/17 13:04) MDM Plan Patient is a 22 year old at 33 weeks and 0 days who presents to OB triage complaining of cramping pain last night and bleeding this morning. Patient has not yet established care with an flotation tender helper but has appointment with [facility] next week. IUP- Category I tracing, reassuring. UTI * UA: Urine yellow, hazy, pH 7.0, specific gravity 1.009, protein negative, glucose negative, ketones negative, occult blood small, nitrite negative, bilirubin negative, leukocyte esterase large, RBC 1, WBC 3, bacteria moderate, culture indicated. * Urine culture - pending. Will follow up on sensitivities. * Discharge on Macrobid 100 mg BID PO x 7 days. Hidradenitis * To continue Clindamycin and Flagyl as prescribed at previous visit. * Patient to continue Tylenol for pain control. * Patient counselled regarding using Hydrogen Peroxide/water for cleansing lesions. * Patient advised to take Sitz baths as desired. * Patient counselled to follow-up with PCP and return to ED if she develops fevers or concerns for worsening. Anemia * Due to history, patient counselled to continue ferrous sulfate 325mg TID as prescribed at previous visit. Patient to follow-up with [facility] on 10/04/16. Diagnosis Diagnosis: Primary Impression: Urinary tract infection Additional Impressions: Bleeding Abdominal cramping Disposition: 01 DISCHARGE HOME Condition: Stable Scripts Nitrofurantoin Monohydrate Macrocrystals (Macrobid) 100 Mg Cap 100 MG PO BID for Infection for 7 Days, #14 CAP 0 Refills Prov: Stephany Parks MD R1 09/29/17 Stephany Parks MD R1 Sep 29, 2017 13:20
[2017-09-29 13:33] LABS: BACTERIA, URINE MOD /hpf; BILIRUBIN, URINE NEG (NEG); BLOOD, URINE SMALL (NEG); GLUCOSE,URINE NEG (NEG); HYALINE CAST, URINE 1 /lpf (RARE); KETONE, URINE NEG (NEG); NITRITE,URINE NEG (NEG); SQUAMOUS EPITHELIAL CELL URINE 2 /hpf (0-5); URINE COLOR YELLOW (YELLW/STRAW); URINE LEUKOCYTE ESTERASE LARGE (NEG)
[2017-09-29] MEDS ORDERED: MACR100C2 PO (13:54)
== END 2017-09-29 14:32 | disposition home or self-care (01) ==
LOC: HOBED 12:05
DX: O23.43 Unspecified infection of urinary tract in pregnancy, third trimester (principal); O46.93 Antepartum hemorrhage, unspecified, third trimester; O99.013 Anemia complicating pregnancy, third trimester; D64.9 Anemia, unspecified; O99.713 Diseases of the skin and subcutaneous tissue complicating pregnancy, third trimester; L73.2 Hidradenitis suppurativa; Z3A.33 33 weeks gestation of pregnancy
CPT/HCPCS: 59025; 81001; 87086

== ENCOUNTER 2017-10-08 00:19 | Emergency (ER) | payer BC, OTHER ==
[~2017-10-08] VITALS: Ht 167.6 cm; Wt 96.5 kg
[~2017-10-08 00:19] MED LIST changes: +MACR100C2 PO
[2017-10-08 00:27] VITALS: BP 120/68; PULSE 104; RESP 16; TEMP 99.2; O2SAT 100
[2017-10-08] MEDS ORDERED: PREN29TA PO (00:46)
--- NOTE | 2017-10-08 02:07 | PD ---
HPI Chief Complaint: Edema Time Seen by Provider: 01:05 Travel History International Travel<30 days: No Contact w/Intl Traveler<30days: No Traveled to known affect area: No History of Present Illness HPI 22-year-old female complains of pain swelling in the right hand. Paresthesias report about the dorsal aspect of the right hand. Duration about 1 day. The patient's known to be 34 weeks . Onset gradual. Timing constant. Severity mild. No difficulty speaking or pain involving the face or weakness involving the face. PFSH Past Medical History Hx Anticoagulant Therapy: No Anemia: Yes (IRON DEFICIENCY) Arthritis: No Cancer: No Cardiovascular Problems: No Cerebrovascular Accident: No Diabetes: No Diminished Hearing: No Endocrine: No Genitourinary: No Headaches: Yes Hepatitis: No Hiatal Hernia: No Immune Disorder: No Musculoskeletal: No Neurologic: No Psychiatric: No Reproductive: No Respiratory: Yes (BRONCHITIS) Integumentary: Yes (puralitive hydranitis BLE) Immunizations Current: Yes Migraines: Yes Thyroid Disease: No Tetanus Vaccination: < 5 Years Influenza Vaccination: No ?: : 4 Para: 1 Miscarriage: 0 : 2 Ovarian Cysts: Yes Past Surgical History Abdominal Surgery: Yes (c section) AICD: No Cardiac Surgery: No Section: Yes (2014) Ear Surgery: No Endocrine Surgery: No Eye Surgery: No Genitourinary Surgery: No Gynecologic Surgery: Yes Joint Replacement: No Oral Surgery: Yes (TOOTH EXTRACTION) Pacemaker: No Thoracic Surgery: No Other Surgery: Yes (BILATERAL AXILLA R/T INFECTION) Social History Alcohol Use: No Tobacco Use: No Substance Use: No Allergies-Medications (Allergen,Severity, Reaction): Coded Allergies: vancomycin (Unverified Allergy, Mild, ITCHING, 10/04/17) Reported Meds & Prescriptions Reported Meds & Active Scripts Active Keflex (Cephalexin) 500 Mg Cap 500 Mg PO Q12H 3 Days Ferrous Sulfate 325 Mg (65 Mg Iron) Tablet 325 Mg PO TIDPC Flagyl (Metronidazole) 500 Mg Tab 500 Mg PO BID Clindamycin (Clindamycin HCl) 300 Mg Cap 300 Mg PO TID Reported Plus Iron 29-1 mg ( Vit-Iron Carbonyl) 29 Mg Iron-1 Mg Tab 1 Tab PO DAILY Review of Systems Except as stated in HPI: all other systems reviewed are Neg General / Constitutional: No: Fever Physical Exam Narrative GENERAL: Well-nourished well-developed 22-year-old female no acute distress SKIN: Warm and dry. HEAD: Atraumatic. Normocephalic. EYES: Pupils equal and round. No scleral icterus. No injection or drainage. ENT: No nasal bleeding or discharge. Mucous membranes pink and moist. NECK: Trachea midline. No JVD. CARDIOVASCULAR: Regular rate and rhythm. RESPIRATORY: No accessory muscle use. Clear to auscultation. Breath sounds equal bilaterally. GASTROINTESTINAL: Abdomen soft, non-tender, nondistended. Hepatic and splenic margins not palpable. MUSCULOSKELETAL: Extremities without clubbing, cyanosis, or edema. No obvious deformities. Trace swelling along the dorsal aspect of the right hand. 2+ dorsalis pedis bilaterally. Hand poultry grader equal bilaterally. NEUROLOGICAL: Awake and alert. No obvious cranial nerve deficits. Motor grossly within normal limits. Five out of 5 muscle strength in the arms and legs. Normal speech. PSYCHIATRIC: Appropriate mood and affect; insight and judgment normal. Data Data Last Documented VS Vital Signs Date Time Temp Pulse Resp B/P (MAP) Pulse Ox O2 Delivery O2 Flow Rate FiO2 10/08/17 03:55 10/08/17 00:27 99.2 104 16 100 Room Air Vital signs reviewed Orders Orders Complete Blood Count With Diff (10/08/17 01:15) Basic Metabolic Panel (Bmp) (10/08/17 01:15) Urinalysis - C+S If Indicated (10/08/17 01:15) Us Arm Venous Doppler Bilat (10/08/17 ) Labs Laboratory Tests Test 10/08/17 01:50 10/08/17 02:35 White Blood Count 11.2 TH/MM3 Red Blood Count 3.86 MIL/MM3 Hemoglobin 9.6 GM/DL Hematocrit 28.7 % Mean Corpuscular Volume 74.3 FL Mean Corpuscular Hemoglobin 24.9 PG Mean Corpuscular Hemoglobin Concent 33.5 % Red Cell Distribution Width 14.9 % Platelet Count 275 TH/MM3 Mean Platelet Volume 7.0 FL Neutrophils (%) (Auto) 65.6 % Lymphocytes (%) (Auto) 22.5 % Monocytes (%) (Auto) 9.3 % Eosinophils (%) (Auto) 2.0 % Basophils (%) (Auto) 0.6 % Neutrophils # (Auto) 7.4 TH/MM3 Lymphocytes # (Auto) 2.5 TH/MM3 Monocytes # (Auto) 1.0 TH/MM3 Eosinophils # (Auto) 0.2 TH/MM3 Basophils # (Auto) 0.1 TH/MM3 CBC Comment DIFF FINAL Differential Comment Blood Urea Nitrogen 6 MG/DL Creatinine 0.53 MG/DL Random Glucose 97 MG/DL Calcium Level 8.8 MG/DL Sodium Level 138 MEQ/L Potassium Level 3.6 MEQ/L Chloride Level 107 MEQ/L Carbon Dioxide Level 23.4 MEQ/L Anion Gap 8 MEQ/L Estimat Glomerular Filtration Rate 175 ML/MIN Urine Color YELLOW Urine Turbidity CLEAR Urine pH 6.5 Urine Specific [place] 1.015 Urine Protein TRACE mg/dL Urine Glucose (UA) NEG mg/dL Urine Ketones NEG mg/dL Urine Occult Blood NEG Urine Nitrite NEG Urine Bilirubin NEG Urine Urobilinogen LESS THAN 2.0 MG/DL Urine Leukocyte Esterase SMALL Urine RBC 1 /hpf Urine WBC 2 /hpf Urine Squamous Epithelial Cells 1 /hpf Urine Bacteria FEW /hpf Urine Mucus MOD /lpf Microscopic Urinalysis Comment CULT NOT INDICATED MDM Medical Decision Making Medical Screen Exam Complete: Yes Emergency Medical Condition: Yes Medical Record Reviewed: Yes Differential Diagnosis DVT, venous insufficiency, infectious process, nonspecific edema Narrative Course CBC & BMP Diagram 10/08/17 01:50 Calcium Level 8.8 Urinalysis shows bacteriuria Ultrasound shows no DVT Diagnosis Primary Impression: Hand swelling Qualified Codes: M79.89 - Other specified soft tissue disorders Referrals: Anesthesia Associate 2 days Med/Other Pt SpecificInfo: Prescription(s) given Scripts Cephalexin (Keflex) 500 Mg Cap 500 MG PO Q12H for Infection for 3 Days, #6 CAP 0 Refills Prov: Luc Parker MD 10/08/17 Disposition: 01 DISCHARGE HOME Condition: Stable Luc Parker MD Oct 08, 2017 02:07
[2017-10-08 02:11] LABS: AUTOMATED NEUTROPHIL # 7.4 TH/MM3 (1.8-7.7); BASOPHIL # 0.1 TH/MM3 (0-0.2); BASOPHIL % 0.6 % (0.0-2.0); EOSINOPHIL # 0.2 TH/MM3 (0-0.4); HEMATOCRIT 28.7 % (35.0-46.0); HEMOGLOBIN 9.6 GM/DL (11.6-15.3); LYMPH % 22.5 % (9.0-44.0); LYMPHOCYTE # 2.5 TH/MM3 (1.0-4.8); MEAN CELL VOLUME 74.3 FL (80.0-100.0); MEAN CORPUSCULAR HEMOGLOBIN 24.9 PG (27.0-34.0); MEAN CORPUSCULAR HGB CONC 33.5 % (32.0-36.0); MONO % 9.3 % (0.0-8.0); NEUT % 65.6 % (16.0-70.0); PLATELET COUNT 275 TH/MM3 (150-450); RED BLOOD COUNT 3.86 MIL/MM3 (4.00-5.30); RED CELL DISTRIBUTION WIDTH 14.9 % (11.6-17.2); WHITE BLOOD COUNT 11.2 TH/MM3 (4.0-11.0)
[2017-10-08 02:32] LABS: BICARBONATE 23.4 MEQ/L (21.0-32.0); CALCIUM 8.8 MG/DL (8.5-10.1); CREATININE 0.53 MG/DL (0.50-1.00)
[2017-10-08 03:11] LABS: BACTERIA, URINE FEW /hpf; BILIRUBIN, URINE NEG (NEG); BLOOD, URINE NEG (NEG); GLUCOSE,URINE NEG (NEG); KETONE, URINE NEG (NEG); MUCUS URINE MOD /lpf (OCC); NITRITE,URINE NEG (NEG); PH, URINE 6.5 (5.0-8.5); SQUAMOUS EPITHELIAL CELL URINE 1 /hpf (0-5); URINE COLOR YELLOW (YELLW/STRAW); URINE LEUKOCYTE ESTERASE SMALL (NEG)
[2017-10-08] MEDS ORDERED: CEPH-460 PO (03:32)
--- NOTE | 2017-10-08 09:09 | RADRPT ---
EXAM DATE/TIME: 10/08/2017 02:42 [facility] COMPARISON: No previous studies available for comparison. INDICATIONS : Bilateral arm swelling. MEDICAL HISTORY : . Migraines. Bronchitis. x 2. Anemia. Ovarian cysts. Blood transfusion. Hidradeni tis suppurativa. SURGICAL HISTORY : section. Bilateral axilla surgery. ENCOUNTER: Initial ACUITY: 1 day PAIN SCORE: 3 LOCATION: Bilateral arms. FINDINGS: RIGHT UPPER EXTREMITY: There is spontaneous flow documented in the brachial, basilic, cephalic, axillary, and subclavian vei ns. The vessels are compressible and augmentation response is documented. No filling defects are se en. The flow is phasic with respiration. Direction of flow in the jugular vein is caudal. LEFT UPPER EXTREMITY: There is spontaneous flow documented in the brachial, basilic, cephalic, axillary, and subclavian vei ns. The vessels are compressible and augmentation response is documented. No filling defects are se en. The flow is phasic with respiration. Direction of flow in the jugular vein is caudal. CONCLUSION: No DVT. Brandon Camacho MD on October 08, 2017 at 3:17 Board Certified Radiologist. This report was verified electronically.
== END 2017-10-08 04:07 | disposition home or self-care (01) ==
LOC: NEPC 00:19
DX: O99.89 Other specified diseases and conditions complicating pregnancy, childbirth and the puerperium (principal); M79.89 Other specified soft tissue disorders; Z3A.34 34 weeks gestation of pregnancy
CPT/HCPCS: 80048; 81001; 85025; 93970; 99284

== ENCOUNTER 2017-11-04 22:39 | Emergency (ER) | payer BC, OTHER ==
[~2017-11-04 22:39] MED LIST changes: +CEPH-460 PO; -MACR100C2 PO; +PREN29TA PO
[2017-11-04] MEDS ORDERED: ACETAMIN 325 MG/BUTALBITAL 50 MG/CAFFEINE 40 MG TAB PO ONE (23:45)
[2017-11-04 23:55] LABS: HEMATOCRIT 27.9 % (35.0-46.0); HEMOGLOBIN 9.1 GM/DL (11.6-15.3); MEAN CELL VOLUME 73.3 FL (80.0-100.0); MEAN CORPUSCULAR HGB CONC 32.7 % (32.0-36.0); MEAN PLATELET VOLUME 7.1 FL (7.0-11.0); PLATELET COUNT 284 TH/MM3 (150-450); RED CELL DISTRIBUTION WIDTH 16.1 % (11.6-17.2); WHITE BLOOD COUNT 11.1 TH/MM3 (4.0-11.0)
--- NOTE | 2017-11-04 23:57 | PD ---
HPI Chief Complaint Right sided headache 38 weeks and 2 days Date Seen: Nov 04, 2017 Time Seen: 23:40 Travel History International Travel<30 Days: No Contact w/Intl Traveler<30Days: No Known Affected Area: No History of Present Illness HPI Pt is a 22 yo at 38 weeks and 2 days. Patient states she developed relatively sudden onset of right sided headache, starting about 2 hours prior to presenting here. Pt moving actively c/o pain. Denies pain at back of head or neck. Active movements. No nausea or vomiting. Reports blurred vision in RIGHT eye. Pt states she had h/o migraines but none recently. care [facility]. EDC 11-17-2017 complicated by previous C section, planning repeat C Section. She has a repeat C Section consult scheduled for 11/08/2017. Pt taking Fe supplement for h/o anemia. Weeks Gestation: 38 Para: 1 : 2 History Past Medical History Narrative Medical h/o Anemia Migraines Hidradenitis suppuritiva Obstetric History Obstetric History Previous C Section Past Surgical History Narrative Surgical Excision bilateral axillary hidradenitis. Family History Family History: Negative Social History Alcohol Use: No Tobacco Use: No Substance Abuse: No Allergies-Medications (Allergen,Severity, Reaction): Coded Allergies: vancomycin (Unverified Allergy, Mild, ITCHING, 10/04/17) Home Meds Active Scripts Zddidziohw-Shnyktkuufefh-[place] (Fioricet) 50-300-40 Mg Cap, 1-2 CAP PO Q6H Y for HEADACHE, #30 CAP 0 Refills Prov:Zoran Allen MD 11/05/17 Ferrous Sulfate (Ferrous Sulfate) 325 Mg (65 Mg Iron) Tablet, 325 MG PO TIDPC for Nutritional Supplement, #90 TAB 0 Refills Prov:Paulo Duarte MD, R3 09/19/17 Reported Medications Vit-Iron Carbonyl ( Plus Iron 29-1 mg) 29 Mg Iron-1 Mg Tab, 1 TAB PO DAILY for Nutritional Supplement, #30 TAB 0 Refills 10/08/17 Review of Systems Except as stated in HPI: all other systems reviewed are Neg Physical Exam Narrative GENERAL: Well-nourished, well-developed patient. SKIN: Warm and dry. HEAD: Normocephalic and atraumatic. EYES: No scleral icterus. No injection or drainage. ENT: No nasal drainage noted. Mucous membranes pink. Airway patent. NECK: Supple, trachea midline. No JVD. CARDIOVASCULAR: Regular rate and rhythm without murmurs, gallops, or rubs. RESPIRATORY: Breath sounds equal bilaterally. No accessory muscle use. BREASTS: Bilateral exam showed no masses , no retractions, no nipple discharge. ABDOMEN/GI: Abdomen soft, non-tender, bowel sounds present, no rebound, no guarding Gravid to [38] weeks size Fundal Height: [38] GENITOURINARY: External Genitalia: intact and normal in appearance BUS glands: [wnl] hidraneitis lesions over mons pubis and vulva Cervix: [firm] Dilatation: [closed] Effacement: [long] Station: [-2] Presentation: [-] Membranes: [intact] Uterine Contractions: [none] FHT's: Category: [1] Baseline: [130s] Reactive: [-] Variability: [moderate] Decels: [none] EXTREMITIES: No cyanosis or edema. BACK: Nontender without obvious deformity. No CVA tenderness. NEUROLOGICAL: Awake and alert. Motor and sensory grossly within normal limits. Five out of 5 muscle strength in all muscle groups. Normal speech. No tenderness over scalp Data Data Vital Signs Reviewed: Yes Orders Orders Vital Signs (Adult) .ON ADMISSION (11/04/17 23:41) ^ Labor Status (11/04/17 23:41) Urinalysis - C+S If Indicated (11/04/17 23:41) ^ Non Stress Test (11/04/17 23:41) ^ Hydration (11/04/17 23:41) Cbc No Diff, Includes Plts (11/04/17 23:41) Comprehensive Metabolic Panel (11/04/17 23:41) Ob/Psych Drug Screen, Urine (11/04/17 23:41) Xarz-Zjyvy-Jbxp 325-50-40 Mg (Fioricet 3 (11/04/17 23:45) Group B Strep: Negative MDM Plan Pt is a 22 yo at 38 weeks and 2 days, presenting with right sided headache starting about 2 hours prior to presenting here. Pt is actively moving. status reassuring. BP is wnl. Pt has previous c section but has no contractions and no abdominal pain. Will send labs- CBC, CMP, UA Fioricet for headache Pt reported significant improvement in symptoms after Fioricet. Supports diagnosis of migraine headache. Will DC home with PO Fioricet. Has C Section consult appointment 11/08/2017 Diagnosis Diagnosis: Primary Impression: with 38 completed weeks gestation Additional Impressions: Headache Hidradenitis suppurativa Migraine headache Disposition: DISCHARGE HOME Condition: Stable Scripts Jhvsuvlymi-Pfbcoavbilspu-Pparzfjz (Fioricet) 50-300-40 Mg Cap 1-2 CAP PO Q6H Y for HEADACHE, #30 CAP 0 Refills Prov: Zoran Allen MD 11/05/17 Zoran Allen MD Nov 04, 2017 23:56
[2017-11-04 23:58] LABS: BACTERIA, URINE RARE /hpf; BILIRUBIN, URINE NEG (NEG); BLOOD, URINE NEG (NEG); GLUCOSE,URINE NEG (NEG); KETONE, URINE NEG (NEG); MUCUS URINE FEW /lpf (OCC); NITRITE,URINE NEG (NEG); PH, URINE 6.5 (5.0-8.5); SQUAMOUS EPITHELIAL CELL URINE 1 /hpf (0-5); URINE COLOR YELLOW (YELLW/STRAW); URINE LEUKOCYTE ESTERASE MOD (NEG)
[2017-11-05 00:13] LABS: ALBUMIN 2.6 GM/DL (3.4-5.0); ALT (GPT) 13 U/L (10-53); AST (GOT) 13 U/L (15-37); BICARBONATE 24.1 MEQ/L (21.0-32.0); BLOOD UREA NITROGEN 8 MG/DL (7-18); CALCIUM 8.9 MG/DL (8.5-10.1); CHLORIDE 106 MEQ/L (98-107); CREATININE 0.64 MG/DL (0.50-1.00); GLOMERULAR FILTRATION RATE 140 ML/MIN (>89); GLUCOSE,RANDOM 110 MG/DL (74-106); SODIUM (NA) 138 MEQ/L (136-145)
[2017-11-05] MEDS ORDERED: BUTA1CAP PO (00:15)
[2017-11-05 00:16] LABS: ALKALINE PHOSPHATASE 96 U/L (45-117); TOTAL BILIRUBIN ADULT 0.3 MG/DL (0.2-1.0); TOTAL PROTEIN 7.2 GM/DL (6.4-8.2)
[2017-11-05 00:27] VITALS: RESP 18
[2017-11-05 00:28] VITALS: BP 108/38; PULSE 82
== END 2017-11-05 01:08 | disposition home or self-care (01) ==
LOC: HOBED 22:39
DX: O26.893 Other specified pregnancy related conditions, third trimester (principal); G43.909 Migraine, unspecified, not intractable, without status migrainosus; L73.2 Hidradenitis suppurativa; O99.013 Anemia complicating pregnancy, third trimester; D64.9 Anemia, unspecified; Z3A.38 38 weeks gestation of pregnancy; Z88.5 Allergy status to narcotic agent; Z79.899 Other long term (current) drug therapy
CPT/HCPCS: 59025; 80053; 80307; 81001; 85027; 99283; G0481

== ENCOUNTER 2017-11-11 08:14 | Inpatient (IN) | payer BC, OTHER ==
[~2017-11-11] VITALS: Ht 167.6 cm; Wt 98.0 kg
[2017-11-11] VITALS (11 sets, daily range): BP systolic 95–120; BP diastolic 57–88; PULSE 67–89; RESP 16–18; TEMP 97.7–98.3; O2SAT 97–100
[~2017-11-11 08:14] MED LIST changes: +BUTA1CAP PO; -CEPH-460 PO; -CLIN300C5 PO; -METR-1 PO
[2017-11-11] MEDS ORDERED: LACTATED RINGER'S 1000 ML INJ 1,000 ML IV ONE (09:00)
--- NOTE | 2017-11-11 09:16 | HHI.HP ---
History & Physical H&P MOLD WORKER Consult (Detail) Patient Name: Shaila Hernandez Unit Number: [id number] Date of : 1995 Patient Status: Registered Clinic Attending Doctor: Maximiliano Hinojosa II, MD HPI HPI Chief Complaint Previous for repeat section tubal Date Seen: Nov 08, 2017 Time Seen: 13:30 Travel History International Travel<30 Days: No Contact w/Intl Traveler<30Days: No Known Affected Area: No History of Present Illness HPI Patient is 22-year-old black female A 2 previous who now presents for repeat tubal ligation. [facility] and is now 3 9 weeks by EDC of 11/17/17. Patient's had no problems with is done well. Weeks Gestation: 39 Para: 1 : 4 Last Menstrual Period: Nov 08, 2017 Miscarriage: 2 History (Limited) History Obstetric History Obstetric History 1 for failure to progress possible distress done in [place], she had 2 early losses Past Surgical History Narrative Surgical section Social History Alcohol Use: No Tobacco Use: No Substance Abuse: No Allergies-Medications Allergies-Medications (Allergen,Severity, Reaction): Coded Allergies: vancomycin (Unverified Allergy, Mild, ITCHING, 10/04/17) Home Meds Active Scripts Jzdguyszps-Puyvxmgzrkxyc-Qmdnaqrq (Fioricet) 50-300-40 Mg Cap, 1-2 CAP PO Q6H Y for HEADACHE, #30 CAP 0 Refills Prov:Zoran Allen MD 11/05/17 Ferrous Sulfate (Ferrous Sulfate) 325 Mg (65 Mg Iron) Tablet, 325 MG PO TIDPC for Nutritional Supplement, #90 TAB 0 Refills Prov:Paulo Duarte MD, R3 09/19/17 Reported Medications Vit-Iron Carbonyl ( Plus Iron 29-1 mg) 29 Mg Iron-1 Mg Tab, 1 TAB PO DAILY for Nutritional Supplement, #30 TAB 0 Refills 10/08/17 ROS Review of Systems General / Constitutional: No: Fever, Weight Gain, Chills, Other Eyes: No: Diploplia, Blurred Vision, Visual changes, Pain, Photophobia HENT: No: Headaches, Vertigo, Lightheadedness Cardiovascular: No: Irregular Rhythm, Chest Pain or Discomfort, Palpitations, Tachycardia, Syncope, Varicosities, Edema, Cyanosis Respiratory: No: Cough, Short of Breath, Other Gastrointestinal: No: Nausea, Vomiting, Diarrhea Genitourinary: No: Decreased Urinary Output, Oliguria Musculoskeletal: No: Limited ROM, Weakness, Cramping, Edema, Pain Skin: No Rash, No Itching, No Dryness, No Lumps, No Change in Pigmentation, No Change in Nails, No Alopecia, No Lesions Neurologic: No: Weakness, Dizziness, Syncope, Focal Abnormalities, Coordination Problem, Headache, Slurred Speech, Seizures Psychiatric: No: Depression, Suicidal Ideations, Homicidal Ideation Endocrine: No: Heat Intolerance, Cold Intolerance, Polydipsia, Polyuria, Other Physical Exam Physical Exam Narrative GENERAL: Well-nourished, well-developed patient. SKIN: Warm and dry. HEAD: Normocephalic and atraumatic. EYES: No scleral icterus. No injection or drainage. ENT: No nasal drainage noted. Mucous membranes pink. Airway patent. NECK: Supple, trachea midline. No JVD. CARDIOVASCULAR: Regular rate and rhythm without murmurs, gallops, or rubs. RESPIRATORY: Breath sounds equal bilaterally. No accessory muscle use. BREASTS: Bilateral exam showed no masses , no retractions, no nipple discharge. ABDOMEN/GI: Abdomen soft, non-tender, bowel sounds present, no rebound, no guarding Gravid to [38-] weeks size Fundal Height: [38-] GENITOURINARY: External Genitalia: intact and normal in appearance BUS glands: [-] Cervix: [post-] Dilatation: [0-] Effacement: [thick-] Station: [-3] Presentation: [-vtx] Membranes: [intact ] Uterine Contractions: [none-] FHT's: Category: [-1] Baseline: [133-] Reactive: [-R] Variability: [-mod] Decels: [-] EXTREMITIES: No cyanosis or edema. BACK: Nontender without obvious deformity. No CVA tenderness. NEUROLOGICAL: Awake and alert. Motor and sensory grossly within normal limits. Five out of 5 muscle strength in all muscle groups. Normal speech. Data Data MDM MDM Interpretation(s) Patient is 22-year-old white female G4/P 1/ 2 at 39 weeks presents for section consultation and wants tubal ligation. She has signed her tubal papers she has them with her and they are appropriately dated. She understands that tubal ligation is a permanent procedure however it has a less than 100% success rate with a 1 and 300 failure rate this was explained at length she understands this. Her EDC is 11/17/17 and blood pressure 39 weeks on this coming plan her repeat on 11/11/17 Plan Plan for repeat tubal ligation on the day mentioned above. Diagnosis: Previous desires sterilization Disposition: ADMIT Condition: Stable Maximiliano Hinojosa II, MD 2017 0900 Maximiliano Hinojosa II, MD Nov 11, 2017 09:16
[2017-11-11] MEDS ORDERED: LACTATED RINGER'S 1000 ML INJ 1,000 ML IV SCH (09:30)
[2017-11-11] MEDS ORDERED: ceFAZolin 2 GM PREMIX 50 ML IV SCH ×2 (09:30→20:00)
[2017-11-11 09:56] LABS: AUTOMATED NEUTROPHIL # 7.3 TH/MM3 (1.8-7.7); BASOPHIL # 0.1 TH/MM3 (0-0.2); BASOPHIL % 0.9 % (0.0-2.0); EOSINOPHIL # 0.2 TH/MM3 (0-0.4); EOSINOPHIL % 2.4 % (0.0-4.0); HEMATOCRIT 30.5 % (35.0-46.0); HEMOGLOBIN 10.1 GM/DL (11.6-15.3); LYMPH % 18.4 % (9.0-44.0); LYMPHOCYTE # 1.9 TH/MM3 (1.0-4.8); MEAN CELL VOLUME 73.5 FL (80.0-100.0); MEAN CORPUSCULAR HEMOGLOBIN 24.3 PG (27.0-34.0); MEAN CORPUSCULAR HGB CONC 33.1 % (32.0-36.0); MONO % 7.9 % (0.0-8.0); MONOCYTE # 0.8 TH/MM3 (0-0.9); NEUT % 70.4 % (16.0-70.0); PLATELET COUNT 284 TH/MM3 (150-450); RED BLOOD COUNT 4.15 MIL/MM3 (4.00-5.30); RED CELL DISTRIBUTION WIDTH 16.4 % (11.6-17.2); WHITE BLOOD COUNT 10.4 TH/MM3 (4.0-11.0)
[2017-11-11] MEDS ORDERED: CITRIC ACID-SODIUM CITRATE LIQ 30 ML UDC PO SCH (10:00)
[2017-11-11 10:02] LABS: BACTERIA, URINE FEW /hpf; BILIRUBIN, URINE NEG (NEG); BLOOD, URINE NEG (NEG); GLUCOSE,URINE NEG (NEG); HYALINE CAST, URINE 3 /lpf (RARE); KETONE, URINE NEG (NEG); MUCUS URINE FEW /lpf (OCC); NITRITE,URINE NEG (NEG); PH, URINE 6.5 (5.0-8.5); SQUAMOUS EPITHELIAL CELL URINE 3 /hpf (0-5); URINE COLOR YELLOW (YELLW/STRAW); URINE LEUKOCYTE ESTERASE LARGE (NEG)
[2017-11-11] MEDS ORDERED: MORPHINE SULFATE PF 5 MG/10 ML VIAL ONE (10:22)
[2017-11-11] MEDS ORDERED: EPIDURAL-DO NOT ADMINISTER ANTICOAGULANTS PRN (10:23)
[2017-11-11] MEDS ORDERED: EPIDURAL-DIPHENHYDRAMINE HCL 50 MG CAP PO PRN (10:23)
[2017-11-11] MEDS ORDERED: EPIDURAL-DIPHENHYDRAMINE HCL 50 MG/ML VIAL IV PUSH PRN (10:23)
[2017-11-11] MEDS ORDERED: EPIDURAL-NALOXONE HCL 0.4 MG/ML AMP IV PUSH PRN (10:23)
[2017-11-11] MEDS ORDERED: EPIDURAL-NO SYSTEMIC NARCOTICS PRN (10:23)
[2017-11-11] MEDS ORDERED: OXYTOCIN 30 UNITS-500ML PREMIX 500 ML ONE (12:33)
[2017-11-11] MEDS ORDERED: ZOLPIDEM TARTRATE 5 MG TAB PO PRN (13:15)
[2017-11-11] MEDS ORDERED: ONDANSETRON HCL 4 MG/2 ML VIAL IV PUSH PRN (13:15)
[2017-11-11] MEDS ORDERED: OXYTOCIN 30 UNITS-500ML PREMIX 500 ML IV ONE (13:15)
[2017-11-11] MEDS ORDERED: oxyCODONE/ACETAMINOPHEN 5 MG/325 MG TAB PO PRN (13:15)
[2017-11-11] MEDS ORDERED: KETOROLAC TROMETHAMINE 60 MG/2 ML (IM) VIAL IM PRN (13:15)
[2017-11-11] MEDS ORDERED: SODIUM CHLORIDE 0.9% FLUSH 10 ML FLUSH IV FLUSH PRN (13:15)
[2017-11-11] MEDS ORDERED: ACETAMINOPHEN 325 MG TAB PO PRN (13:15)
[2017-11-11] MEDS ORDERED: PROCHLORPERAZINE INJ 10 MG/2 ML VIAL IV PUSH PRN (13:45)
--- NOTE | 2017-11-11 16:21 | MP ---
cc: Maximiliano Hinojosa MD DATE OF OPERATION: PREOPERATIVE DIAGNOSES: A 39-week intrauterine , previous section, desires sterilization. POSTOPERATIVE DIAGNOSES: A 39-week intrauterine , previous section, desires sterilization. PROCEDURE PERFORMED: A repeat low transverse section, bilateral tubal ligation. SURGEON: Maximiliano Hinojosa MD CLIENT HR MANAGER: Dr. Maria from [facility] ANESTHESIA: Spinal. PREOPERATIVE NOTE: Patient is a 22-year-old black female, A2, at 39 weeks, previous , now for repeat . She desires tubal ligation. She understands the risks and benefits of tubal that is considered permanent, yet less 100% effective with a 1/300 failure rate. PROCEDURE: The patient was taken to the operating room, placed in supine position on the operating room table. With adequate spinal anesthesia administered, she was prepped and draped for abdominal surgery. The previous Pfannenstiel incision was excised out and cast off. The incision carried to the fascia sharply. The fascia was incised laterally and reflected off the rectus muscle sharply. The peritoneal cavity entered sharply in the midline. The incision was extended superior and inferiorly with care used to avoid bladder injury. The incision stretched open and bladder blade placed in the lower uterine incision. The visceral peritoneum reflected off the lower uterine segment sharply with no injury of the bladder placement of the bladder blade. The transverse hysterotomy was made and extended bluntly bilaterally, clear fluid noted. A female was delivered at 11:08, Apgars 8 and 9, weight 3580 g. There were no complications. Delayed cord clamping done. Cord blood obtained. Placenta manually extracted. The hysterotomy was closed after the uterus exteriorized in a single layer of 0 chromic followed by imbricating suture of the same with hemostasis a couple of stick ties. The uterus was elevated and the tubal was then done. The left tube was grasped with Bassam clamp and placed on traction. The avascular portion of the mesosalpinx identified, hemostat passed through that and pulled 2 catgut sutures through that window and the tube was tied fore and aft without difficulty. A 1-inch segment of tube was removed and sent to pathology. The same was done on the opposite side. There was no complication. The tubal was performed in the Elaine fashion and was tolerated well. Hemostasis achieved. The uterus was elevated and blood suctioned from cul-de-sac and gutters and the uterus replaced in the peritoneal cavity. Ovaries noted to be normal bilaterally. The parietal peritoneum closed in running layer of 2-0 Vicryl. The rectus muscle reapproximated with stick ties of Vicryl and chromic. The fascia closed in running layer of 0 Vicryl. Subcutaneous tissues reapproximated with running catgut suture. Skin closed with subQ 3-0 Monocryl. Steri-Strips, pressure dressing applied. Estimated blood loss 500 mL. There were no complications. Sponge and needle correct x 2 and the patient to recovery stable condition. MD NAYELI Harvey/MARCIE , 12:13 PM , 04:19 PM
[2017-11-11] MEDS: LACTATED RINGER'S 1000 ML INJ 1,000 ML IV SCH (18:02)
[2017-11-11] MEDS ORDERED: OXYTOCIN 30 UNITS-500ML PREMIX 500 ML IV PRN (23:15)
[2017-11-12 04:00] VITALS: BP 101/56; PULSE 80; RESP 16; TEMP 97.7
[2017-11-12] MEDS ORDERED: ceFAZolin 2 GM PREMIX 50 ML IV SCH (04:00)
[2017-11-12] MEDS: LACTATED RINGER'S 1000 ML INJ 1,000 ML IV SCH (04:02)
[2017-11-12] MEDS: IBUPROFEN 600 MG TAB PO PRN ×3 (04:58→20:19)
[2017-11-12] MEDS: oxyCODONE/ACETAMINOPHEN 5 MG/325 MG TAB PO PRN ×4 (04:58→20:19)
[2017-11-12 06:29] LABS: AUTOMATED NEUTROPHIL # 11.5 TH/MM3 (1.8-7.7); BASOPHIL % 0.3 % (0.0-2.0); EOSINOPHIL # 0.1 TH/MM3 (0-0.4); EOSINOPHIL % 0.6 % (0.0-4.0); HEMATOCRIT 24.1 % (35.0-46.0); LYMPHOCYTE # 1.6 TH/MM3 (1.0-4.8); MEAN CELL VOLUME 72.9 FL (80.0-100.0); MEAN CORPUSCULAR HEMOGLOBIN 24.2 PG (27.0-34.0); MEAN CORPUSCULAR HGB CONC 33.3 % (32.0-36.0); MEAN PLATELET VOLUME 6.6 FL (7.0-11.0); MONO % 9.2 % (0.0-8.0); MONOCYTE # 1.3 TH/MM3 (0-0.9); NEUT % 78.9 % (16.0-70.0); PLATELET COUNT 230 TH/MM3 (150-450); RED BLOOD COUNT 3.31 MIL/MM3 (4.00-5.30); WHITE BLOOD COUNT 14.6 TH/MM3 (4.0-11.0)
--- NOTE | 2017-11-12 07:47 | HHI.OB ---
Subjective Post Operative Day: 1 Remarks Patient doing well on postop day 1 afebrile with stable vital signs She has a moderate amount of pain surgically related bandages dry White catheter is out Baby is doing well in the room with mother Objective Vitals/I&O Vital Signs Date Time Temp Pulse Resp B/P (MAP) Pulse Ox O2 Delivery O2 Flow Rate FiO2 11/11/17 23:52 98.3 81 16 95/59 (71) 97 11/11/17 20:00 98.3 89 18 100/57 (71) 97 11/11/17 16:52 74 116/64 (81) 11/11/17 16:52 97.8 98 11/11/17 16:32 17 11/11/17 16:15 17 11/11/17 14:30 98.1 83 18 115/68 (84) 97 11/11/17 13:15 79 18 115/57 (76) 100 11/11/17 13:00 71 16 120/88 (99) 99 11/11/17 12:44 67 16 104/58 (73) 100 11/11/17 12:29 75 18 110/59 (76) 100 11/11/17 12:15 97.7 78 18 98 Result Diagram: 11/12/17 0611 Objective Remarks GENERAL: Well-nourished, well-developed patient. CARDIOVASCULAR: Regular rate and rhythm without murmurs, gallops, or rubs. RESPIRATORY: Breath sounds equal bilaterally. No accessory muscle use. ABDOMEN/GI: Abdomen soft, non-tender, bowel sounds present. Incision: Clean, dry and intact. Fundus: Firm, non-tender at umbilicus. GENITOURINARY: Light to moderate bleeding. EXTREMITIES: No cyanosis or edema, non-tender, without signs of DVT. Medications and IVs Current Medications Medications (Trade) Dose Ordered Sig/Angel Route Start Time Stop Time Status Last Admin Cefazolin Sodium/ Dextrose 50 ml @ 100 mls/hr APPLICATION PACKAGING SPECIALIST IV 11/11/17 09:30 11/15/17 09:29 (Bicitra Liq) 30 ml APPLICATION PACKAGING SPECIALIST PO 11/11/17 10:00 11/15/17 09:59 11/11/17 10:10 Lactated Ringer's 1,000 ml @ 100 mls/hr Q10H IV 11/11/17 18:02 11/12/17 14:01 Oxytocin 500 ml @ 100 mls/hr UNSCH X1 PRN IV 11/11/17 23:15 11/12/17 23:14 (NS Flush) 2 ml BID IV FLUSH 11/11/17 21:00 (NS Flush) 2 ml UNSCH PRN IV FLUSH 11/11/17 13:15 (Tylenol) 650 mg Q6H PRN PO 11/11/17 13:15 (Motrin) 600 mg Q6H PRN PO 11/11/17 13:15 11/12/17 04:58 (Toradol Inj) 60 mg UNSCH X1 PRN IM 11/11/17 13:15 11/12/17 13:14 11/11/17 13:26 (Percocet 5-325 Mg) 1 tab Q4H PRN PO 11/11/17 13:15 (Percocet 5-325 Mg) 2 tab Q4H PRN PO 11/11/17 13:15 11/12/17 04:58 (Ambien) 5 mg HS PRN PO 11/11/17 13:15 (M-M-R Ii Inj) 0.5 ml ONCE ONCE SQ 11/12/17 16:00 11/12/17 16:01 (Boostrix Inj) 0.5 ml ONCE ONCE IM 11/12/17 16:00 11/12/17 16:01 (Zofran Inj) 4 mg Q6H PRN IV PUSH 11/11/17 13:15 (Compazine Inj) 10 mg Q6H PRN IV PUSH 11/11/17 13:45 Miscellaneous Information NO SYSTEMIC NARCOTICS TO BE GIVEN FO... UNSCH PRN .XX 11/11/17 10:23 11/12/17 10:29 (Narcan Inj) 0.4 mg UNSCH PRN IV PUSH 11/11/17 10:23 11/12/17 10:29 (Benadryl Inj) 25 mg Q6H PRN IV PUSH 11/11/17 10:23 11/12/17 10:29 (Benadryl) 50 mg Q6H PRN PO 11/11/17 10:23 11/12/17 10:29 Miscellaneous Information ALL NURSING DEPARTMENTS UNSCH PRN .XX 11/11/17 10:23 11/12/17 10:29 Cefazolin Sodium/ Dextrose 50 ml @ 100 mls/hr Q8H IV 11/12/17 04:00 11/12/17 12:29 Assessment/Plan Assessment and Plan Postop day 1 status post repeat tubal ligation Patient stable and will continue postop progressive care will increase ambulation and diet Patient likely to go home tomorrow Maximiliano Hinojosa II, MD Nov 12, 2017 07:47
[2017-11-12 08:00] VITALS: BP 80/51; PULSE 74; RESP 16; TEMP 98.2
[2017-11-12] MEDS ORDERED: IBUP-232 PO (09:37)
--- NOTE | 2017-11-12 09:37 | HHI.DCPOC ---
Discharge Care Plan Diagnosis: (1) delivery, delivered, current hospitalization Report Symptoms to Your Doctor -Temperature above 100.5 degrees -Redness, of incision or excessive or foul smelling drainage -Unusual pain or calf pain -Increased vaginal bleeding -Painful or difficulty urinating -Feelings of extreme sadness or anxiety after 2 weeks Goals to Promote Your Health * To prevent worsening of your condition and complications * To maintain your health at the optimal level Directions to Meet Your Goals Take your medications as prescribed Follow your dietary instruction Follow activity as directed Ensure plenty of rest for recovery Drink fluids for hydration Keep your appointments as scheduled Take your immunizations and boosters as scheduled If your symptoms worsen call your PCP, if no PCP go to Urgent Care Center or Emergency Room Smoking is Dangerous to Your Health. Avoid second hand smoke Call the 24-hour crisis hotline for domestic abuse at Emeka Hussein MD Nov 12, 2017 09:37
[2017-11-12] MEDS: SODIUM CHLORIDE 0.9% FLUSH 10 ML FLUSH IV FLUSH SCH ×2 (09:55→21:00)
[2017-11-12] MEDS ORDERED: oxyCODONE/ACETAMINOPHEN 5 MG/325 MG TAB PO PRN (10:15)
[2017-11-12 15:10] VITALS: BP 99/46; PULSE 87; RESP 16; TEMP 98.2
[2017-11-12] MEDS ORDERED: MEASLES, MUMPS, RUBELLA VACCINE 0.5 ML VIAL SQ ONE (16:00)
[2017-11-12] MEDS ORDERED: DIPHTH/TETANUS/ACEL PERTUSSIS (BOOSTER) 0.5 ML VIAL/PFS IM ONE (16:00)
[2017-11-12] MEDS: DOCUSATE SODIUM 100 MG CAP PO SCH ×2 (16:52→20:20)
[2017-11-13] MEDS: oxyCODONE/ACETAMINOPHEN 5 MG/325 MG TAB PO PRN (02:08)
[2017-11-13] MEDS: IBUPROFEN 600 MG TAB PO PRN ×2 (02:08→08:23)
[2017-11-13 07:15] VITALS: BP 108/64; PULSE 86; RESP 18; TEMP 98
[2017-11-13] MEDS ORDERED: OXYC1TAB63 PO (07:35)
--- NOTE | 2017-11-13 08:02 | HHI.OB ---
Subjective Remarks 22 year old s/p C/S at 39 wks gestation, POD 2. AFVSS. Patient reports she is feeling well. Bleeding is decreasing and pain is well-controlled. She is breast feeding and bonding well with baby. Ambulating without difficulties. She is tolerating a diet without nausea or vomiting. She has not had a bowel movement. She has passed gas. Denies chest pain, dysuria, shortness of breath, or calf pain. Objective Vitals/I&O Vital Signs Date Time Temp Pulse Resp B/P (MAP) Pulse Ox O2 Delivery O2 Flow Rate FiO2 11/13/17 07:15 86 108/64 (79) 11/13/17 07:15 98.0 18 11/12/17 15:10 98.2 87 16 99/46 (63) Result Diagram: 11/12/17 0611 Objective Remarks GENERAL: Well-nourished, well-developed patient. CARDIOVASCULAR: Regular rate and rhythm without murmurs, gallops, or rubs. RESPIRATORY: Breath sounds equal bilaterally. No accessory muscle use. ABDOMEN/GI: Abdomen soft, non-tender, bowel sounds present. Incision: Clean, dry and intact. Fundus: Firm, non-tender at umbilicus. GENITOURINARY: Light to moderate bleeding. EXTREMITIES: No cyanosis or edema, non-tender, without signs of DVT. Medications and IVs Current Medications Medications (Trade) Dose Ordered Sig/Angel Route Start Time Stop Time Status Last Admin Cefazolin Sodium/ Dextrose 50 ml @ 100 mls/hr BLOW MOLDING MACHINE OPERATOR IV 11/11/17 09:30 11/15/17 09:29 (Bicitra Liq) 30 ml BLOW MOLDING MACHINE OPERATOR PO 11/11/17 10:00 11/15/17 09:59 11/11/17 10:10 (NS Flush) 2 ml BID IV FLUSH 11/11/17 21:00 (NS Flush) 2 ml UNSCH PRN IV FLUSH 11/11/17 13:15 (Tylenol) 650 mg Q6H PRN PO 11/11/17 13:15 (Motrin) 600 mg Q6H PRN PO 11/11/17 13:15 11/13/17 02:08 (Ambien) 5 mg HS PRN PO 11/11/17 13:15 (Zofran Inj) 4 mg Q6H PRN IV PUSH 11/11/17 13:15 (Compazine Inj) 10 mg Q6H PRN IV PUSH 11/11/17 13:45 (Percocet 5-325 Mg) 1 tab Q4H PRN PO 11/12/17 10:15 (Percocet 5-325 Mg) 2 tab Q4H PRN PO 11/12/17 10:15 11/13/17 02:08 (Colace) 100 mg BID PO 11/12/17 14:00 11/12/17 16:52 Assessment/Plan Assessment and Plan Postop day 2 status post repeat tubal ligation Patient stable and will continue postop progressive care will increase ambulation and diet Stable for discharge today S/p tubal ligation, no need for contraception Pelvic rest x 6 weeks F/u in 1 week for incision check Emeka Hussein MD Nov 13, 2017 08:02
[2017-11-13] MEDS: DOCUSATE SODIUM 100 MG CAP PO SCH (08:22)
== END 2017-11-13 10:38 | disposition home or self-care (01) | DRG 766 ==
LOC: H2EB 08:14 → H1EA 14:37
PROVIDERS: ADMIT Obstetrics & Gynecology Maternal & Fetal Medicine; ATTEND Obstetrics & Gynecology Maternal & Fetal Medicine
PROC: 10D00Z1 Extraction of Products of Conception, Low, Open Approach (ICD-10-PCS; principal; 2017-11-11)
PROC: 0UB70ZZ Excision of Bilateral Fallopian Tubes, Open Approach (ICD-10-PCS; 2017-11-11)
DX: O34.211 Maternal care for low transverse scar from previous cesarean delivery (principal); Z30.2 Encounter for sterilization; Z37.0 Single live birth; Z3A.39 39 weeks gestation of pregnancy
CPT/HCPCS: 59025; 80307; 81001; 82948; 85025; 86850; 86900; 86901; 88302; J0690; J1885; J2274; J2590; J3010; J7120